=== PATIENT | male | born 1965 | race Caucasian/White ===

== ENCOUNTER 2022-03-27 15:37 | Outpatient (CLI) | payer BC, SELFPAY ==
--- NOTE | ~2022-03-27 | XR_ITS ---
EXAMINATION: XR lumbar spine 6V w bending DATE: 03/27/2022 16:27 INDICATION: Dorsalgia, unspecified. TECHNIQUE: 10 views of lumbar spine including flexion and extension views were obtained. COMPARISON: Lumbar spine MRI 03/27/2022 FINDINGS: There is 5 mm retrolisthesis of L2 on L3 that reduces to 3 mm with flexion. There is 3 mm a nterolisthesis of L3 on L4. There are changes of posterior fusion procedure at L4-L5 with pedicle scr ews. Vertebral body heights are normal. There is moderately decreased disc height at T11-T12 and L2-L 3 and mildly decreased disc height at L3-L4. There is multilevel facet joint osteoarthritis, severe b ilaterally at L5-S1. IMPRESSION: 1. Moderate lumbar spondylosis. 2. Posterior fusion procedure at L4-L5. Reviewed, dictated and finalized at location A. ATION ADMINISTRATOR
--- NOTE | ~2022-03-27 | MR_ITS ---
MRI of the lumbar spine Clinical History: Back pain Technique: Axial T2-weighted images, and sagittal T1-weighted, T2-weighted, and STIR images were acqu ired. Findings: There is posterior fusion hardware from L4 to L5, with bilateral rods and transpedicular sc rews present. There is associated probable L4 laminectomy. No acute fracture identified. 3-4 mm retro listhesis of L2 over L3 noted. No suspicious bone marrow signal abnormality identified. At L1-L2, there is no disc bulge or herniation. There is moderate bilateral facet arthropathy. No spi nal canal stenosis or neural foraminal narrowing. At L2-L3, there is a left paracentral disc extrusion, resulting in left lateral recess stenosis. Ther e is advanced facet arthropathy, which also contributes to severe bilateral neural foraminal compromi se and probable impingement of the bilateral exiting nerve roots. At L3-L4, disc bulge and facet arthropathy are present. No wayne spinal canal stenosis. There is mode rate to severe bilateral neural foraminal narrowing, left worse than right. At L4-L5, there is no disc bulge or herniation. There is facet arthropathy. No spinal canal stenosis. Probable minimal bilateral neural foraminal narrowing. At L5-S1, there is no disc bulge or herniation. There is mild facet joint degenerative change. No spi nal canal stenosis or definite neural foraminal narrowing. Paravertebral soft tissues demonstrate expected postsurgical change.. Impression: Left paracentral disc extrusion L2-L3, resulting in significant left lateral recess stenosis. Severe bilateral neural foraminal narrowing at L2-L3. Moderate to severe bilateral neural foraminal narrowing at L3-L4. Postsurgical changes at the L4-L5 level, as detailed above. Reviewed, dictated and finalized at [facility]. L ADMINISTRATIVE ASSISTANT Impression: Left paracentral disc extrusion L2-L3, resulting in significant left lateral re cess stenosis. Severe bilateral neural foraminal narrowing at L2-L3. Moderate to severe bilateral neural foraminal narrowing at L3-L4. Postsurgical changes at the L4-L5 level, as detailed above.
== END 2022-03-27 15:38 ==
PROVIDERS: PCP Family Medicine; Visit Provider Nurse Practitioner Adult Health
DX: M47.896 Other spondylosis, lumbar region (principal); Z98.1 Arthrodesis status; M51.26 Other intervertebral disc displacement, lumbar region
CPT/HCPCS: 72114; 72148

== ENCOUNTER 2024-04-26 08:31 | Outpatient (CLI) | payer BC, SELFPAY ==
--- NOTE | ~2024-04-26 | NM_ITS ---
EXAMINATION: NM bone scan whole body DATE: 04/26/2024 12:25 INDICATION: Prostate cancer TECHNIQUE: 25.7 mCi Tc-99m HDP was administered intravenously. Delayed whole-body scintigrams were o btained. COMPARISON: CT abdomen pelvis dated 04/26/2024 FINDINGS: Typical pattern of likely degenerative joint centered uptake at the bilateral acromioclavicular joint s, elbows, hands, knees and mid feet and at the right ankle. Mild uptake posteriorly at the lower lum bar spine likely related to instrumented L4-L5 posterior spinal fusion. Mild uptake couple of the tho racic facet joints also likely degenerative in etiology. No other foci of atypical bone uptake to sug gest metastatic disease. IMPRESSION: 1. Typical pattern of scattered degenerative joint centered uptake in the axial and appendicular skel eton. No lesion suspicious for metastatic disease. Reviewed, dictated and finalized at location A. ATIENT SCHEDULER IMPRESSION: 1. Typical pattern of scattered degenerative joint centered uptake in the axial and appendicular skeleton. No lesion suspicious for metastatic disease.
--- NOTE | ~2024-04-26 | CT_ITS ---
EXAMINATION: CT abdomen pelvis w con DATE: 04/26/2024 09:02 INDICATION: Prostate cancer. TECHNIQUE: Computed tomography (CT) of the abdomen and pelvis was performed with 100 mL Omnipaque 350 intravenous contrast. Automated exposure control and iterative reconstruction technique were employe d. The dose-length product was 1408.47 mGy-cm. COMPARISON: None. FINDINGS: The visualized portions of the lung bases demonstrate mild atelectasis. There is a pneumato walter in left lower lobe. No pleural effusion. The heart size is normal. No pericardial effusion. Ther e is a small sliding hiatal hernia. The liver, gallbladder, spleen, pancreas, and adrenal glands are normal. There are cysts in the kidneys measuring up to 10 mm on the left. There are bilateral inguina l hernias containing fat. The prostate is mildly enlarged. There are no dilated loops of bowel. The a ppendix is normal. There are no pathologically enlarged lymph nodes. There is no free intraperitoneal fluid. There are changes of posterior fusion procedure at L4-L5. There is moderate thoracic spondylo sis and severe lumbar spondylosis. IMPRESSION: 1. Mildly enlarged prostate. 2. No evidence of metastatic disease. Reviewed, dictated and finalized at location A. COACH
--- OUTSIDE RECORDS SUMMARY | 2024-04-26 08:38 | XMS_ITS | Patient Health Summary ---
Author Organization [facility] Address [address] [place] [address] Care Team Providers Care Clerk Travel Reservations Name Role Phone Unavailable Primary Care Provider Unavailabl e Note from [facility],non-owned Affiliates and Associated Physician Practices is amultiple site organization consisting of ambulatory clinics and hospital sitesin [place], [place], [place] and [place]. This disclosure is being madepursuant to the Care Everywhere program and may not contain all information available regarding this patient. Last updated 17.[facility] Allergies No known active allergies Medications * Be aware that medications may not be up to date on this document. Alwaysverify current medications with the patient. * lisinopril-hydrochlorothiazide (PRINIZIDE; ZESTORETIC) 20-25 MG tablet Take 1 Tab by mouth daily. * simvastatin (ZOCOR) 40 MG tablet Take 40 mg by mouth at bedtime. * VOLTAREN PO Take 75 mg by mouth 2 times daily. * hydrocodone-acetaminophen (VICODIN) 5-500 MG tablet(Started 02/08/2009) Take 1-2 Tabs by mouth every 4 hours as needed for Pain. * lisinopril (PRINIVIL) 20 MG tablet(Started 02/08/2009) Take 1 Tab by mouth daily. * methocarbamol (ROBAXIN) 750 MG tablet(Started 02/08/2009) Take 1 Tab by mouth every 6 hours. Social History Tobacco Use Types Packs/Day Years Used Date Smoking Tobacco: Never Alcohol Use Standard Drinks/Week Comments No 0 (1 standard drink = 0.6 oz pur e alcohol) Sex and Gender Information Value Date Recorded Sex Assigned at Not on file Gender Identity Not on file Sexual Orientation Not on file Last Filed Vital Signs Vital Sign Reading Time Taken Comments Blood Pressure 111/72 02/08/2009 4:00 PM PSYCHOLOGIST CHIEF Pulse 99 02/08/2009 4:00 PM PSYCHOLOGIST CHIEF Temperature 36.2 C (97.2 F) 02/08/2009 4:00 PM PSYCHOLOGIST CHIEF Respiratory Rate 16 02/08/2009 4:00 PM PSYCHOLOGIST CHIEF Oxygen Saturation 98% 02/08/2009 4:00 PM PSYCHOLOGIST CHIEF Inhaled Oxygen Concentration - - Weight 106.6 kg (235 lb 0.2 oz) 009 10:32 AM PSYCHOLOGIST CHIEF Height 182.9 cm (6' 0.01 ) 01/29/2009 1 0:32 AM PSYCHOLOGIST CHIEF Body Mass Index 31.87 01/29/2009 10:32 AM PSYCHOLOGIST CHIEF Procedures * CARDIAC RHYTHM STRIP ORDER(Performed 02/13/2009) * XR CERVICAL SPINE 2 OR 3VW(Performed 02/08/2009) Performed for Cervical Pain * FL IMAGING GENERAL(Performed 02/08/2009) Performed for Cervical Pain * BASIC METABOLIC PANEL (CALCIUM TOTAL)(Performed 02/08/2009) Performed for Unspecified Backache Results * CARDIAC RHYTHM STRIP ORDER (02/13/2009 9:35 AM PSYCHOLOGIST CHIEF) Narrative 02/13/2009 9:35 AM PSYCHOLOGIST CHIEF Ordered by an unspecified provider. Transcriptions Document, Scanned - 02/08/2009 12:00 AM PSYCHOLOGIST CHIEF Scanned Document CARDIAC SERVICES ORD ERABLES * XR CERVICAL SPINE AP LATERAL (02/08/2009 4:52 PM PSYCHOLOGIST CHIEF) Anatomical Region Laterality Modality Spine Radiographic Aimee ging 02/08/2009 5:03 PM PSYCHOLOGIST CHIEF Impressions 02/08/2009 7:08 PM PSYCHOLOGIST CHIEF 1. Status post fusion C3-C6. Narrative 02/08/2009 7:08 PM PSYCHOLOGIST CHIEF TWO VIEW CERVICAL SPINE 02/08/09 HISTORY: Status post fusion. FINDINGS: Postoperative changes consistent with anterior fusion of C3 through C6 is demonstrated without radiographic evidence of loosening of the fixation devices. No fracture or subluxation is present. The prevertebral soft tissues are essentially normal. Procedure Note Leo Tineo MD - 02/08/2009 TWO VIEW CERVICAL SPINE 02/08/09 HISTORY: Status post fusion. FINDINGS: Postoperative changes consistent with anterior fusion of C3 through C6 is demonstrated without radiographic evidence of loosening of the fixation devices. No fracture or subluxation is present. The prevertebral soft tissues are essentially normal. IMPRESSION 1. Status post fusion C3-C6. Stan Snyder MD DIAGNOSTIC IMAGING O RDERABLES * FL FLUORO < 1 HOUR (02/08/2009 12:00 PM PSYCHOLOGIST CHIEF) Anatomical Region Laterality Modality Radio Fluoroscop y 02/08/2009 1:05 PM PSYCHOLOGIST CHIEF Narrative 02/08/2009 7:08 PM PSYCHOLOGIST CHIEF HISTORY: Neck pain. C-arm fluoroscopy 02/08/2009 FINDINGS: C-arm fluoroscopy was provided for intraoperative guidance. A single fluoroscopic crosstable-lateral image of the cervical spine demonstrates anterior fusion of C3 through C6. Would correlate with intraoperative notes for further details . Procedure Note Leo Tineo MD - 02/08/2009 HISTORY: Neck pain. C-arm fluoroscopy 02/08/2009 FINDINGS: C-arm fluoroscopy was provided for intraoperative guidance. A single fluoroscopic crosstable-lateral image of the cervical spine demonstrates anterior fusion of C3 through C6. Would correlate with intraoperative notes for further details . Stan Snyder MD FLUOROSCOPY ORDERABL ES * (ABNORMAL) BASIC METABOLIC PANEL (CALCIUM TOTAL) (02/08/2009 8:00 AM PSYCHOLOGIST CHIEF) Sodium 140 137 - 145 mmol/L [facility] Potassium 4.1 3.6 - 5.0 mmol/L [facility] Chloride 104 98 - 107 mmol/L [facility] BUN 19 9 - 20 mg/dl [facility] Creatinine 1.03 0.66 - 1.25 mg/dl [facility] Glucose 112(H) 75 - 110 mg/dl [facility] CO2 29 22 - 30 mmol/L [facility] Calcium 9.2 8.4 - 10.2 mg/dl [facility] eGFR by MDRD 78(L) 97 - 137 mL/min/1.7 3m2 [facility] Comment eGFR [facility] Comment: The eGFR does not apply to patients who are younger than 18 or older than 70. BLOOD SPECIMEN / Unknown 02/08/2009 8:00 AM PSYCHOLOGIST CHIEF 02/08/2009 8:07 AM PSYCHOLOGIST CHIEF Jose Miguel Pedro MD LAB - CHEMISTRY OR DERABLES Performing Organization Address City/State/[facility] Co de Phone Number [facility] [address] [place] [address]
--- OUTSIDE RECORDS SUMMARY | 2024-04-26 08:38 | XMS_ITS | Data Portability ---
Author Organization [place] - [facility] [employer], Main Office Address [address] [place] [address] Care Team Providers Care Electron Beam Photo Mask Maker Name Role Phone ADOLFO PANIAGUA Primary Care Provider ADOLFO PANIAGUA Referring Provider Assessment Encounter Date Assessment Date Assessment LastModified by Organization Details LastModified Time 07/24/2022 07/24/2022 HPI: Patient returns. He is here injection in both his knees. Last shot was over 5 months ago. His knees have gotten a bit more sore the last month. Shots have always worked well for him in the past he wishes to continue with them. Physical exam: 57-year-old male very alert pleasant. He has mild effusions in both knees. Range of motion is from 3-135 degrees bilaterally. There is significant crepitus of both patellofemoral joints with range of motion as well as moderate. Patellofemoral grind bilaterally. Mild tenderness over both medial joint lines. After ChloraPrep was used on skin 20 mg Kenalog and 3 cc of 0.5% ropivacaine was injected into both knees. Risk infection discussed. Impression: 57-year-old male who has severe patellofemoral osteoarthritis of both knees and moderate medial compartment osteoarthritis of both knees. He continues to good relief from injections from time to time. He will call when he feels he needs additional injections. Not available 07/24/2022 12:58:16 02/19/2023 02/19/2023 HPI: Patient returns. He is here for cortisone injection in both of his knees. Last shots were in July of this year. He has severe patellofemoral osteoarthritis in both knees. He also has mild medial compartment osteoarthritis both knees. He wished to have additional injections today. He is not ready to discuss surgical option on the knees. Physical exam: 57-year-old male alert pleasant. He walks well. He has a mild effusion in both knees. He has mild moderate pain with patellofemoral grind in both knees. Mild medial joint line tenderness in both knees. Range motion is from 5-135 degrees bilaterally. There is no increased edema in either lower extremity. After ChloraPrep used on skin 20 mg Kenalog and 3 cc of 0.5% ropivacaine was injected into both knees. risk of infection discussed. Impression: 57-year-old male who has severe patellofemoral osteoarthritis in both knees. Shots continue give good benefit from time to time. He will call when he feels he needs additional injection Not available 02/19/2023 11:50:31 05/28/2023 05/28/2023 HPI: Patient returns. He is here for cortisone injections into both of his knees. He has severe patellofemoral osteoarthritis in both knees. Last shots were 3 months ago. They do give him good relief and he wishes to continue with injections. Physical exam: Patient has mild effusions in both knees. Range motion is from 5 to 130 bilaterally. Mild to moderate pain with patellofemoral grind bilaterally. Mild medial joint line tenderness bilaterally. After alcohol prep 20 mg Kenalog and 3 cc of 0.5% ropivacaine was injected into both knees. Impression: 58-year-old male who has severe patellofemoral osteoarthritis in both knees. Shots continue give him good relief. I will see him in 3 months. Not available 05/28/2023 11:34:57 Plan of Treatment Reminders Order Date Submit Date Provider Last Modified By Organization Details Last Modified Time Details Appointments None recorded. Lab None recorded. Referral None recorded. Procedures injection/a spiration joint/bursa (PROC) - in office procedure, administere d by provider 2023 024 [email or web address] In-Office Order, Internal Use Only DO Not Attach Compendium DO Not Attach Compendium, Do Not Delete/merge, [id number] 11:05:22 injection/a spiration joint/bursa (PROC) - in office procedure, administere d by provider 2022 023 In-Office Order, Internal Use Only DO Not Attach Compendium DO Not Attach Compendium, Do Not Delete/merge, [id number] 10:53:14 injection/a spiration joint/bursa (PROC) - in office procedure, administere d by provider 2022 023 [email or web address] In-Office Order, Internal Use Only DO Not Attach Compendium DO Not Attach Compendium, Do Not Delete/merge, [id number] 12:18:02 Surgeries None recorded. Imaging XR, knee [address], [address] [place] [address], [id number], 3 15:48:48 Medication Orders Kenalog 10 mg/mL suspension for injection [address] [facility], [address] [place] [address], [address], 4 11:37:03 bupivacaine HCl 0.5 % (5 mg/mL) injection solution [address] [facility], [facility] [place], [address], 4 11:37:03 Kenalog 10 mg/mL suspension for injection [address] [facility], [facility] [place], [address], 3 14:03:42 ropivacaine (PF) 5 mg/mL (0.5 %) injection solution [address], [facility] [place], [address], 3 14:03:42 Kenalog 10 mg/mL suspension for injection [address], [address] [place] [address], [address], 3 12:50:47 ropivacaine (PF) 5 mg/mL (0.5 %) injection solution 2022 023 [email or web address] [facility], [address] [facility], [place], [address], 3 12:50:47 Patient TargetsNo targets recorded. Patient InstructionsNo instructions recorded. Reason for Referral None Reported. Results Created Date Observation Date Name Description Value Unit Range Abnormal Flag Note LastModifiedBy Organization Detail LastModifiedTime 02/07/20 22 XR, knee No observ ation record ed. [id number] [facility] [address], [place], [address], 05/07/2022 03:14:00 07/25/19 23 XR, knee No observ ation record ed. s_g[facility] [address], [place], [address], 07/24/2022 12:57:07 Result Notes None recorded. Problems Name Problem SNOMED Code Status Onset Date Resolution Date Notes Provider Name and Address Organization Details Recorded Time Pain of bilateral knee joints 9257699299058 04 Active 2022 JOSH Aguayo, [place] [facility] [employer] [facility] 3 12:16:30 Disorder of shoulder 954711943 Active Not Available [facility] 3 03:03:06 Knee joint effusion 364410799 Active Not Available [facility] 3 03:03:06 Ankle pain 045694844 Active Not Available [facility] 3 03:03:06 Low back pain 714813101 Active Not Available [facility] 3 03:03:06 Osteoarthr itis 820502079 Active Not Available [facility] 3 03:03:06 Foot pain 94016493 Active Not Available [facility] 3 03:03:07 Osteochond ritis dissecans 56953249 Active Not Available [facility] 3 03:03:07 Bilateral osteoarthr itis of knees 3704992504319 07 Active 2022 JOSH Aguayo, [place] - [facility] [employer] [facility] 10:50:32 Problem Notes None recorded. Procedures Surgical History Date Name Laterality Status Provider Name and Address Organization Details Recorded Time Carpal tunnel surgery completed Not Available [facility] 05/07/2022 02:55:59 Imaging Results Imaging Date Name Status LastModified by Organiz ation Details LastModified Time 02/06/2022 XR, knee completed [id number] [facility] [address], [place], [address], 05/07/2022 03:14:00 07/24/2022 XR, knee completed [facility], [place], [address], 07/24/2022 12:57:07 Procedure Notes None recorded. Medical Equipment None Reported. Medications Name Sig Start Date Stop Date Status Note LastModified by Organization Details LastModified Time lidocaine/n ifedipine 5%/0.5% ointment FISSURE OINT-LIDO PETRA 3%, NIFEDIPIN E 0.5% - APPLY SPARINGLY TO AFFECTED AREA 1-3 TIMES DAILY NEEDED. 02/19 completed Not Available Not Available Not Available lisinopril 20 mg-hydrochl orothiazide 12.5 mg tablet 09/04 completed Not Available Not Available Not Available azithromyci n 250 mg tablet 05/31 completed Not Available Not Available Not Available ibuprofen 800 mg tablet 05/31 completed Not Available Not Available Not Available hydrocodone 5 mg-acetamin ophen 325 mg tablet TAKE 1 TABLET BY MOUTH EVERY 4 HOURS NEEDED FOR BREAKTHRO UGH PAIN active Not Available Not Available No t Available bupivacaine HCl 0.5 % (5 mg/mL) injection solution In office injection administe red by the provider 2023 active Not Available Not Available Not Avai lable sulfamethox azole 800 mg-trimetho prim 160 mg tablet 05/31 completed Not Available Not Available Not Available tramadol 50 mg tablet 06/22 completed Not Available Not Available Not Available ketorolac 10 mg tablet TAKE FIRST DOSE OF ONE TABLET 6 HOURS AFTER SURGERY, THEN EVERY SIX HOURS WITH FOOD FOR PAIN. 02/19 completed Not Available Not Available Not Available DOK 100 mg capsule TAKE 1 CAPSULE BY MOUTH EVERY 12 HOURS FOR CONSTIPAT ION FROM NARCOTIC PAIN MEDICATIO N active Not Available Not Available No t Available Kenalog 10 mg/mL suspension for injection in office 2023 active NDC: 0003- 0494- 20 Not Available Not Available Not Available benzonatate 100 mg capsule 06/22 completed Not Available Not Available Not Available fluorometho lone 0.1 % eye drops,suspe nsion 05/31 completed Not Available Not Available Not Available lisinopril 20 mg-hydrochl orothiazide 25 mg tablet TAKE 1 TABLET BY MOUTH ONCE DAILY active Not Available Not Available No t Available oxycodone-a cetaminophe n 7.5 mg-325 mg tablet TAKE ONE OR TWO BY MOUTH EVERY 4-6 HOURS NEEDED FOR POST-OP PAIN. 02/19 completed Not Available Not Available Not Available methylpredn isolone 4 mg tablets in a dose pack Take 1 dose pk by oral route as directed. 07/24 completed Not Available Not Available Not Available doxycycline hyclate 100 mg tablet TAKE 1 TABLET BY MOUTH TWICE DAILY active Not Available Not Available No t Available naproxen 500 mg tablet Take 1 tablet by mouth twice daily with food active Not Available Not Available No t Available diazepam 5 mg tablet TAKE 1 TABLET BY MOUTH EVERY 6 HOURS NEEDED FOR MUSCLE SPASM active Not Available Not Available No t Available amoxicillin 875 mg-potassiu m clavulanate 125 mg tablet 05/31 completed Not Available Not Available Not Available rosuvastati n 10 mg tablet 05/31 completed Not Available Not Available Not Available rosuvastati n 20 mg tablet TAKE 1 TABLET BY MOUTH ONCE DAILY active Not Available Not Available No t Available ibuprofen 04/26 completed Not Available Not Available Not Available lidocaine (PF) 10 mg/mL (1 %) injection solution In office injection administe red by the provider 07/25 completed ND: 0409- 4276- [id number] Not Available Not Available Not Available Voltaren 1 % topical gel APPLY 2 GRAM TO THE AFFECTED AREA(S) BY TOPICAL ROUTE 3 times per day active Not Available Not Available No t Available ropivacaine (PF) 5 mg/mL (0.5 %) injection solution in office 2022 active Not Available Not Available Not Avai lable Fluarix Quad (PF) 60 mcg (15 mcg x 4)/0.5 mL IM syringe 05/31 completed Not Available Not Available Not Available Fluvirin 45 mcg (15 mcg x 3)/0.5 mL intramuscul ar suspension active Not Available Not Available N ot Available Fluarix Quad (PF) 60 mcg (15 mcg x 4)/0.5 mL IM syringe active Not Available Not Available N ot Available Fluarix Quad (PF) 60 mcg (15 mcg x 4)/0.5 mL IM syringe active Not Available Not Available N ot Available Flucelvax Quad (PF) 60 mcg (15 mcg x 4)/0.5 mL IM syringe active Not Available Not Available N ot Available ID NOW COVID-19 Test Kit TEST DIRECTED TODAY active Not Available Not Available No t Available Flucelvax Quad (PF) 60 mcg (15 mcg x 4)/0.5 mL IM syringe ADM 0.5ML IM UTD 02/08 completed Not Available Not Available Not Available Paxlovid 300 mg (150 mg x 2)-100 mg tablets in a dose pack TAKE 3 TABLETS TOGETHER (TWO 150 MG NIRMATREL VIR TABLETS AND ONE 100 MG RITONAVIR TABLET) BY MOUTH TWICE DAILY FOR 5 DAYS. 07/24 completed Not Available Not Available Not Available Vitals Date Recorded Body height Body mass index (BMI) Body weight Provider Name and Address Organization Details Last Updated DateTime 07/24/2022 175.26 cm 37.1 kg/m2 444081.68 g Bibi Jones Etienne [facility] [employer] [facility] 07/24/2022 12:20:12 Date Recorded Body height Provider Name an d Address Organization Details Last Updated DateTime 02/19/2023 175.26 cm Bibi Jones Etienne [facility] [employer] [facility] 02/19/2023 10:49:55 Date Recorded Body height Provider Name an d Address Organization Details Last Updated DateTime 05/28/2023 175.26 cm JOSH Aguayo [place] [facility] 05/28/2023 11:03:22 Date Recorded Body mass index (BMI) Body height Body height Body weight Provider Name and Address Organization Details Last Updated DateTime 05/07/2022 39 kg/m2 175.26 cm 175.26 cm 404841.39 g Not Available [facility] 05/07/2022 03:00:20 Social History Question Answer Notes LastModified by [employer] ion Details LastModified Time Tobacco Smoking Status Unknown If Ever Smoked Not Available [facility] 05/07/2022 02:48:56 What Is Your Level Of Alcohol Consumption? Occasional [id number] Information not available 05/07/2022 Sex: Unknown Functional Status None recorded. Mental Status None recorded. Family History Relationship Description Onset Age of this Age Resolved Age Notes LastModified by Organization Details LastModified Time Father Hypertensive disorder [id number] Not available 05/07/2022 02:56:03 Medical History Condition Response BLINDNESS N KIDNEY STONES N MRSA N CARPAL TUNNEL SYNDROME N LUNG DISEASE/DISORDER N HISTORY OF DRUG ABUSE N RADIATION / CHEMOTHERAPY N COPD N SPORTS INJURY N ANKLE PAIN N BLOOD DISEASES N SCHIZOPHRENIA N SHINGLES N SHOULDER PAIN N DEPRESSION (INCLUDING POST ) N BOWEL PROBLEMS N STROKE/TIA N ULCERS N KNEE PAIN N BENIGN PROSTATIC HYPERPLASIA N OBESITY N GERD/NAUSEA N ANEURYSM N URINARY/BLADDER/KIDNEY PROBLEMS N CORONARY ARTERY DISEASE (CAD) N ADDICTION CONCERNS N USE OF BLOOD THINNERS N SKIN PROBLEMS N EMPHYSEMA N MUSCLE,JOINT OR BONE PROBLEMS N DVT N STOMACH ULCERS N BLOOD CLOTS N USE OF NSAIDS N CONCUSSION OR SPINAL TRAUMA N NEUROPATHY N AIDS/HIV N FRACTURES N HYPERTENSION N ELBOW PAIN N TOURETTE'S N Metal allergy N ANXIETY DISORDER N BLOOD TRANSFUSION N ANEMIA/BLOOD DISORDER N BIPOLAR DISORDER N BRONCHITIS N OSTEOARTHRITIS N TUBERCULOSIS N FOOT PROBLEM N HEART VALVE DISORDERS N SOFT TISSUE INJURY N ALLERGIES/HAYFEVER N INFECTIOUS DISEASE N HEART ARRHYTHMIA N INSOMNIA N RHEUMATOID ARTHRITIS N HIGH CHOLESTEROL / HYPERLIPIDEMIA N EDEMA N CHRONIC PAIN SYNDROME N CAROTID BLOCKAGE N BACK / NECK PROBLEMS N HAVE YOU BEEN HOSPITALIZED OR SEEN IN [facility] IN THE PAST YEAR ? N BURSITIS N HERNIATED DISC N DIALYSIS N FIBROMYALGIA N OSTEOPOROSIS N ARTHRITIS Y NO SIGNIFICANT PAST MEDICAL HISTORY N PERIPHERAL NEUROPATHY N DIABETES, TYPE N HEARTBURN / REFLUX N HEPATITIS / LIVER DISEASE N GOUT N SLEEP DISORDER N ALZHEIMER'S DISEASE N HERPES N SEIZURES/EPILEPSY N HEADACHES/MIGRAINES N VASCULAR DISEASE N HIP PAIN N Blood Disorder N DIZZINESS N HEAD TRAUMA OR INJURY N HEART DISEASE/HEART PROBLEMS N MULTIPLE SCLEROSIS N CARDIAC ARRHYTHMIA N CANCER: SPECIFY N ANESTHESIA COMPLICATIONS N ATRIAL FIBRILLATION N AUTOIMMUNE DISEASE N Immunizations Vaccine Type Date Status Note Provider Nam e and Address Organization Details Recorded Time Influenza, high-dose, trivalent, PF 03/09/2014 completed Not Available [facility] 2022 03:13:16 Past Encounters Encounter ID Performer Location Encounter Start Date Encounter Closed Date Diagnosis/Indication Diagnosis SNOMED-CT Code Diagnosis ICD10 Code Diagnosis Note [id number] [facility] [address] [address] 09/13/2020 00:00:00 09/13/2020 10:48:16 [id number] [facility] [address] [address] 09/24/2020 00:00:00 09/24/2020 15:57:26 [id number] [facility] [address] [address] 02/28/2021 00:00:00 02/28/2021 10:29:29 [id number] [facility] [address] [address] 07/25/2021 00:00:00 07/25/2021 10:18:45 [id number] [facility] [address] [address] 02/06/2022 00:00:00 02/06/2022 10:34:18 [id number] ANGY Roger [facility] [address] [address] 07/24/2022 11:58:57 07/24/2022 13:10:36 Pain of bilateral knee joints 5527105772 67539 M25.561 M25.836 [id number] ANGY Roger [facility] [address] [address] 02/19/2023 10:43:24 02/19/2023 12:16:10 Bilateral osteoarthritis of knees 0097608965 89291 M17.0 [id number] ANGY Roger [facility] [address] [place] [address] 05/28/2023 11:01:33 05/28/2023 11:24:55 Bilateral osteoarthritis of knees 0730575126 03882 M17.0 Health Concerns Section Related Observation LastModified by Organization Detai ls LastModified Time None Recorded Concern Status LastModified by Organization Details LastModified Time None Recorded Advance Directives Directive None Recorded Payers Encounter Date Sequence Insurance Name Policy Number Policy Garcia Covered Member ID Garcia Member ID Guarantor Name 07/24/2022 1 [place] [id number] Dominic Cariast [id number] Dominic Linwood 02/19/2023 1 [place] [id number] Dominic Cariast [id number] Dominic Linwood 05/28/2023 1 [place] [id number] Dominic Cariast [id number] Dominic Palumbo
--- OUTSIDE RECORDS SUMMARY | 2024-04-26 08:38 | XMS_ITS | Referral Summary ---
Author Organization [facility] [email or web address] Address [address] [place] [address] Care Team Providers Care Squeegee Tender Name Role Phone Unavailable Primary Care Provider Unavailabl e Source Comments [facility],non-owned Affiliates and Associated Physician Practices is amultiple site organization consisting of ambulatory clinics and hospital sitesin [place], [place], [place] and [place]. This disclosure is being madepursuant to the Care Everywhere program and may not contain all information available regarding this patient. Last updated 17.[facility] [email or web address] Allergies No known active allergies Medications * Be aware that medications may not be up to date on this document. Alwaysverify current medications with the patient. Medication Sig Dispensed Refills Start Date End Date Status lisinopril-hydrochloro thiazide (PRINIZIDE; ZESTORETIC) 20-25 MG tablet Take 1 Tab by mouth daily. Active simvastatin (ZOCOR) 40 MG tablet Take 40 mg by mouth at bedtime. Active VOLTAREN PO Take 75 mg by mouth 2 times daily. Active hydrocodone-acetaminop hen (VICODIN) 5-500 MG tablet Take 1-2 Tabs by mouth every 4 hours as needed for Pain. 0 0 02/08/2009 Active lisinopril (PRINIVIL) 20 MG tablet Take 1 Tab by mouth daily. 0 0 02/08/2009 Active methocarbamol (ROBAXIN) 750 MG tablet Take 1 Tab by mouth every 6 hours. 0 0 02/08/2009 Active Social History Tobacco Use Types Packs/Day Years [...] Comments Blood Pressure 111/72 02/08/2009 4:00 PM POWER ELECTRONICS RESEARCH ENGINEER Pulse 99 02/08/2009 4:00 PM POWER ELECTRONICS RESEARCH ENGINEER Temperature 36.2 C (97.2 F) 02/08/2009 4:00 PM POWER ELECTRONICS RESEARCH ENGINEER Respiratory Rate 16 02/08/2009 4:00 PM POWER ELECTRONICS RESEARCH ENGINEER Oxygen Saturation 98% 02/08/2009 4:00 PM POWER ELECTRONICS RESEARCH ENGINEER Inhaled Oxygen Concentration - - Weight 106.6 kg (235 lb 0.2 oz) 009 10:32 AM POWER ELECTRONICS RESEARCH ENGINEER Height 182.9 cm (6' 0.01 ) 01/29/2009 1 0:32 AM POWER ELECTRONICS RESEARCH ENGINEER Body Mass Index 31.87 01/29/2009 10:32 AM POWER ELECTRONICS RESEARCH ENGINEER Plan of Treatment Not on file
--- OUTSIDE RECORDS SUMMARY | 2024-04-26 08:38 | XMS_ITS | Clinical Summary ---
Author Organization [facility] [employer] Address [address] [place] [address] Care Team Providers Care Shirt Folding Machine Operator Name Role Phone Unavailable Primary Care Provider Unavailabl e Source Comments [facility],non-owned Affiliates and Associated Physician Practices is amultiple site organization consisting of ambulatory clinics and hospital sitesin [place], [place], [place] and [place]. This disclosure is being madepursuant to the Care Everywhere program and may not contain all information available regarding this patient. Last updated 17.[facility] Allergies No known active allergies Medications * [...] Comments Blood Pressure 111/72 02/08/2009 4:00 PM GEOTHERMAL FIELD TECHNICIAN Pulse 99 02/08/2009 4:00 PM GEOTHERMAL FIELD TECHNICIAN Temperature 36.2 C (97.2 F) 02/08/2009 4:00 PM GEOTHERMAL FIELD TECHNICIAN Respiratory Rate 16 02/08/2009 4:00 PM GEOTHERMAL FIELD TECHNICIAN Oxygen Saturation 98% 02/08/2009 4:00 PM GEOTHERMAL FIELD TECHNICIAN Inhaled Oxygen Concentration - - Weight 106.6 kg (235 lb 0.2 oz) 009 10:32 AM GEOTHERMAL FIELD TECHNICIAN Height 182.9 cm (6' 0.01 ) 01/29/2009 1 0:32 AM GEOTHERMAL FIELD TECHNICIAN Body Mass Index 31.87 01/29/2009 10:32 AM GEOTHERMAL FIELD TECHNICIAN Plan of Treatment Health Maintenance Due Date Last Done Comments COLOGUARD (AGES 45-75) - COL ON CA SCREENING 1963 COLON MONITORING 1963 COLONOSCOPY - COLON CA SCREENING 1963 CT COLONOGRAPHY - COLON CA SCREENING 1963 Colorectal Cancer Screening 1963 FIT - COLON CA SCREENING 1963 FLEX SIG - COLON CA SCREENING 1963 HIV SCREENING 1978 HEPATITIS C SCREENING 02/26/1981 DTAP/TDAP/TD VACCINES (1 - Tdap) 1982 PNEUMOCOCCAL VACCINE 50+ (1 of 1 - PCV) 2013 ZOSTER VACCINE (1 of 2) 2013 COVID-19 VACCINE ( - 2023-2 5 season) 2023 INFLUENZA VACCINE (#1) 2023 DEPRESSION SCREENING 03/09/2024 Respiratory Syncytial Virus (RSV) Vaccine Pt: or over 60 yrs (1 - 1-dose 75+ series) 2038 HEPATITIS B VACCINE Aged Out No longe r eligible based on patient's age to complete this topic HIB VACCINE Aged Out No longer eligi ble based on patient's age to complete this topic HPV VACCINE Aged Out No longer eligi ble based on patient's age to complete this topic MENINGOCOCCAL (Group B) VACCINE Aged Out No longer eligible based on patient's age to complete this topic MENINGOCOCCAL VACCINE Aged Out No ursula lorena eligible based on patient's age to complete this topic PNEUMOCOCCAL VACCINE Aged Out No long er eligible based on patient's age to complete this topic
[2024-04-26 08:57] LABS: Estimated Glomerular Filt Rate > 60
== END 2024-04-26 08:32 | disposition home or self-care (01) ==
PROVIDERS: PCP Family Medicine; Visit Provider Urology
DX: C61 Malignant neoplasm of prostate (principal)
CPT/HCPCS: 74177; 78306; A9503; Q9967

== ENCOUNTER 2024-06-15 08:46 | Outpatient (CLI) | payer BC, SELFPAY ==
--- NOTE | ~2024-06-15 | XR_ITS ---
CHEST RADIOGRAPH, PA AND LATERAL CLINICAL HISTORY: C61 - Malignant neoplasm of prostate, H/O HTN, DIABETES . COMPARISON: None available TECHNIQUE: PA and lateral views of the chest. FINDINGS The cardiomediastinal silhouette is unremarkable. The lungs are clear. Fixation hardware within the lower cervical spine IMPRESSION: No focal infiltrate or effusion. Reviewed, dictated and finalized at location A.
--- OUTSIDE RECORDS SUMMARY | 2024-06-15 09:25 | XMS_ITS | Data Portability ---
Author Organization [place] [facility], Main Office Address [address] [place] [address] Care Team Providers Care Superintendent Name Role Phone ADOLFO PANIAGUA Primary Care [...] procedure, administere d by provider 2023 024 [email or web address] In-Office Order, Internal Use Only DO Not Attach Compendium DO Not Attach Compendium, Do Not Delete/merge, [id number] 11:05:22 injection/a spiration joint/bursa (PROC) - in office procedure, administere d by provider 2022 023 [email or web address] In-Office Order, Internal Use Only DO Not Attach Compendium DO Not Attach Compendium, Do Not Delete/merge, [id number] 10:53:14 injection/a spiration joint/bursa (PROC) - in office procedure, administere d by provider 2022 023 [email or web address] In-Office Order, Internal Use Only DO Not Attach Compendium DO Not Attach Compendium, Do Not Delete/merge, [id number] 12:18:02 Surgeries None recorded. Imaging XR, knee [address], [address] [place] [address], [phone], 3 15:48:48 Medication Orders Kenalog 10 mg/mL suspension for injection [address] [facility], [address] [place] [address], [address], 4 11:37:03 bupivacaine HCl 0.5 % (5 mg/mL) injection solution [address] [facility], [facility] [place], [address], 4 11:37:03 Kenalog 10 mg/mL suspension for injection [address] [facility], [facility] [place], [address], 3 14:03:42 ropivacaine (PF) 5 mg/mL (0.5 %) injection solution [address], [facility] [place], [address], 3 14:03:42 Kenalog 10 mg/mL suspension for injection [address], [address] [place] [address], [address], 3 12:50:47 ropivacaine (PF) 5 mg/mL (0.5 %) injection solution 2022 023 [email or web address] [facility], [address] [facility], [place], [address], 3 12:50:47 Patient TargetsNo targets recorded. Patient InstructionsNo instructions recorded. Reason for Referral None Reported. Results Created Date Observation Date Name Description Value Unit Range Abnormal Flag Note LastModifiedBy Organization Detail LastModifiedTime 02/07/20 22 XR, knee No observ ation record ed. [id number] [facility] [address], [place], [address], 05/07/2022 03:14:00 07/25/19 23 XR, knee No observ ation record ed. s_gmg [address], [place], [address], 07/24/2022 12:57:07 Result Notes None recorded. Problems Name Problem SNOMED Code Status Onset Date Resolution Date Notes Provider Name and Address Organization Details Recorded Time Pain of bilateral knee joints 5443237943610 04 Active 2022 JOSH Aguayo, [place] - [facility] [employer] [facility] 3 12:16:30 Disorder of shoulder 231876914 Active Not Available [facility] 3 03:03:06 Knee joint effusion 605270771 Active Not Available [facility] 3 03:03:06 Ankle pain 634944053 Active Not Available [facility] 3 03:03:06 Low back pain 339205607 Active Not Available [facility] 3 03:03:06 Osteoarthr itis 027630413 Active Not Available [facility] 3 03:03:06 Foot pain 14400263 Active Not Available [facility] 3 03:03:07 Osteochond ritis dissecans 26846381 Active Not Available [facility] 3 03:03:07 Bilateral osteoarthr itis of knees 0048364023501 07 Active 2022 JOSH Aguayo, [place] - [facility] [employer] [facility] 10:50:32 Problem Notes None recorded. Procedures Surgical History Date Name Laterality Status Provider Name and Address Organization Details Recorded Time Carpal tunnel surgery completed Not Available [facility] 05/07/2022 02:55:59 Imaging Results Imaging Date Name Status LastModified by Organiz ation Details LastModified Time 02/06/2022 XR, knee completed [id number] [facility] [address], [place], [address], 05/07/2022 03:14:00 07/24/2022 XR, knee completed [facility]_[address], [place], [address], 07/24/2022 12:57:07 Procedure Notes None recorded. Medical [...] Updated DateTime 07/24/2022 175.26 cm 37.1 kg/m2 346838.68 g Bibi Jones Etienne [facility] [facility] 07/24/2022 12:20:12 Date Recorded Body height Provider Name an d Address Organization Details Last Updated DateTime 02/19/2023 175.26 cm Bibi Jones Etienne [facility] [employer] [facility] 02/19/2023 10:49:55 Date Recorded Body height Provider Name an d Address Organization Details Last Updated DateTime 05/28/2023 175.26 cm JOSH Aguayo [place] - [facility] 05/28/2023 11:03:22 Date Recorded Body mass index (BMI) Body height Body weight Provider Name and Address Organization Details Last Updated DateTime 07/25/2021 39 kg/m2 175.26 cm 812272.39 g Not Available [facility] 05/07/2022 03:00:20 Date Recorded Body height Provider Name an d Address Organization Details Last Updated DateTime 02/06/2022 175.26 cm Not Available [facility] 03:00:19 Social History Question Answer Notes LastModified by Organizat ion Details LastModified Time Tobacco Smoking Status Unknown If Ever Smoked Not Available [facility] 05/07/2022 02:48:56 What Is Your Level Of Alcohol Consumption? Occasional [id number] Information not available 05/07/2022 Sex: Unknown Functional Status None recorded. Mental Status None recorded. Family History Relationship Description Onset Age of this Age Resolved Age Notes LastModified by Organization Details LastModified Time Father Hypertensive disorder [id number] Not available 05/07/2022 02:56:03 Medical History Condition Response BLINDNESS N KIDNEY STONES N MRSA N CARPAL TUNNEL SYNDROME N LUNG DISEASE/DISORDER N HISTORY OF DRUG ABUSE N RADIATION / CHEMOTHERAPY N COPD N SPORTS INJURY N ANKLE PAIN N BLOOD DISEASES N SCHIZOPHRENIA N SHINGLES N BOWEL PROBLEMS N SHOULDER PAIN N DEPRESSION (INCLUDING POST ) N STROKE/TIA N KNEE PAIN N ULCERS N BENIGN PROSTATIC HYPERPLASIA N OBESITY N GERD/NAUSEA N ANEURYSM N URINARY/BLADDER/KIDNEY PROBLEMS N CORONARY ARTERY DISEASE (CAD) N ADDICTION CONCERNS N USE OF BLOOD THINNERS N SKIN PROBLEMS N EMPHYSEMA N MUSCLE,JOINT OR BONE PROBLEMS N DVT N STOMACH ULCERS N BLOOD CLOTS N USE OF NSAIDS N CONCUSSION OR SPINAL TRAUMA N NEUROPATHY N AIDS/HIV N FRACTURES N ELBOW PAIN N HYPERTENSION N TOURETTE'S N ANXIETY DISORDER N Metal allergy N BLOOD TRANSFUSION N ANEMIA/BLOOD DISORDER N BIPOLAR DISORDER N BRONCHITIS N OSTEOARTHRITIS N TUBERCULOSIS N FOOT PROBLEM N HEART VALVE DISORDERS N ALLERGIES/HAYFEVER N SOFT TISSUE INJURY N INFECTIOUS DISEASE N HEART ARRHYTHMIA N INSOMNIA N RHEUMATOID ARTHRITIS N HIGH CHOLESTEROL / HYPERLIPIDEMIA N EDEMA N CHRONIC PAIN SYNDROME N CAROTID BLOCKAGE N BACK / NECK PROBLEMS N HAVE YOU BEEN HOSPITALIZED OR SEEN IN TH E ER IN THE PAST YEAR ? N BURSITIS [...] high-dose, trivalent, PF 03/09/2014 completed Not Available [facility] 2022 03:13:16 Past Encounters Encounter ID Performer Location Encounter Start Date Encounter Closed Date Diagnosis/Indication Diagnosis SNOMED-CT Code Diagnosis ICD10 Code Diagnosis Note [id number] [facility] [address] [address] 09/13/2020 00:00:00 09/13/2020 10:48:16 [id number] [facility] [address] [address] 09/24/2020 00:00:00 09/24/2020 15:57:26 [id number] [facility] [address] [address] 02/28/2021 00:00:00 02/28/2021 10:29:29 [id number] [facility] [address] [address] 07/25/2021 00:00:00 07/25/2021 10:18:45 [id number] [facility] [address] [address] 02/06/2022 00:00:00 02/06/2022 10:34:18 [id number] ANGY Roger [facility] [address] [address] 07/24/2022 11:58:57 07/24/2022 13:10:36 Pain of bilateral knee joints 9851283633 16658 M25.561 M25.278 [id number] ANGY Roger [facility] [address] [address] 02/19/2023 10:43:24 02/19/2023 12:16:10 Bilateral osteoarthritis of knees 5610375878 26160 M17.0 [id number] ANGY Roger [facility] [address] [address] 05/28/2023 11:01:33 05/28/2023 11:24:55 Bilateral osteoarthritis of knees 6395630791 81831 M17.0 Health Concerns Section Related Observation LastModified by Organization Detai ls LastModified Time None Recorded Concern Status LastModified by Organization Details LastModified Time None Recorded Advance Directives Directive None Recorded Payers Encounter Date Sequence Insurance Name Policy Number Policy Garcia Covered Member ID Garcia Member ID Guarantor Name 07/24/2022 1 [place] [id number] Dominic Cariast [id number] Dominic Linwood 02/19/2023 1 [place] [id number] Dominic Quesadafitt [id number] Dominic Linwood 05/28/2023 1 [place] [id number] Dominic Quesadafitt [id number] Dominic Palumbo
--- OUTSIDE RECORDS SUMMARY | 2024-06-15 09:25 | XMS_ITS | Clinical Summary ---
Author Organization [facility] Address [address] [place] [address] Care Team Providers Care Associate Partner Name Role Phone Unavailable Primary Care Provider Unavailabl e Source Comments [facility],non-owned Affiliates and Associated Physician Practices is amultiple site organization consisting of ambulatory clinics and hospital sitesin [place], [place], [place] and [place]. This disclosure is being madepursuant to the Care Everywhere program and may not contain all information available regarding this patient. Last updated 17.[facility] Allergies No known active allergies Medications * [...] Comments Blood Pressure 111/72 02/08/2009 4:00 PM POT PUSHER Pulse 99 02/08/2009 4:00 PM POT PUSHER Temperature 36.2 C (97.2 F) 02/08/2009 4:00 PM POT PUSHER Respiratory Rate 16 02/08/2009 4:00 PM POT PUSHER Oxygen Saturation 98% 02/08/2009 4:00 PM POT PUSHER Inhaled Oxygen Concentration - - Weight 106.6 kg (235 lb 0.2 oz) 009 10:32 AM POT PUSHER Height 182.9 cm (6' 0.01 ) 01/29/2009 1 0:32 AM POT PUSHER Body Mass Index 31.87 01/29/2009 10:32 AM POT PUSHER Plan of Treatment Health Maintenance Due Date [...] VACCINE (1 of 2) 2013 COVID-19 VACCINE (1 - 2023-2 5 season) 2023 DEPRESSION SCREENING 03/09/2024 INFLUENZA VACCINE (Season Ended) 2024 Respiratory Syncytial Virus (RSV) Vaccine Pt: or [...] to complete this topic MENINGOCOCCAL (Group B) VACC INE SHARED DECISION-MAKING Aged Out No longer eligibl e based on patient's age to complete this topic MENINGOCOCCAL GROUPS A/C/Y/W VACCINE Aged Out No longer eligible b ased on patient's age to complete this topic PNEUMOCOCCAL VACCINE Aged Out No long er eligible based on patient's age to complete this topic
--- NOTE | 2024-06-15 09:34 | ECG_ITS ---
Test Date: 2024-06-15 10:06:41 Measurements Intervals [place] Rate: 65 P: 14 [place]: 171 QRS: 30 QRSD: 89 T: 8 QT: 394 QTc: 411 Interpretive Statements SINUS RHYTHM NONSPECIFIC T-WAVE ABNORMALITY- ANT/INF LEADS BASELINE ARTIFACT- III, V1-V3 BORDERLINE ECG No previous ECG available for comparison Electronically Signed On 06-15-2024 10:08:39 CDT by Yaya Gooden D.O.
[2024-06-15 10:29] LABS: Basophils Absolute Auto 0.1 K/mm3 (0.0-0.1); Basophils Percent Auto 0.8 % (0.2-1.2); Eosinophils Absolute Auto 0.3 K/mm3 (0-0.3); Eosinophils Percent Auto 3.9 % (0-4.4); Hematocrit 44.4 % (42.0-52.0); Immature Granulocyte Absolute 0.02 K/mm3 (0.00-0.031); Immature Granulocyte Percent A 0.3 % (0-0.5); Lymphocytes Absolute Auto 1.73 K/mm3 (0.9-3.2); Lymphocytes Percent Auto 27.2 % (18.3-44.2); Mean Corpuscular HGB Conc 33.8 g/dl (32-36); Mean Corpuscular Hemoglobin 29.4 pg (26-34); Mean Corpuscular Volume 86.9 fl (80-100); Mean Platelet Volume 10.3 fl (7.4-10.4); Monocytes Absolute Auto 0.6 K/mm3 (0.1-0.6); Monocytes Percent Auto 9.1 % (2.6-8.5); Neutrophils Absolute Auto 3.7 K/mm3 (1.3-6.7); Neutrophils Percent Auto 58.7 % (45.5-73.1); Platelet Count Result 200 k/mm3 (150-375); Red Blood Count 5.11 M/mm3 (4.6-6.20); Red Cell Distribution Width 13.5 % (11.5-14.5); White Blood Count 6.4 K/mm3 (4.5-10.0)
[2024-06-15 10:37] LABS: Add Urine Microscopic? YES; Appearance Urine Clear (Clear); Bacteria Urine None Seen /hpf; Bilirubin Urine Negative (Negative); Blood Urine Negative (Negative); Color Urine Yellow (Yellow); Glucose Urine UA Negative (Negative); Ketones Urine Negative (Negative); Leukocyte Esterase Ur Trace LEU/UL (Negative); Nitrate Urine Negative (Negative); Non Pathogenic Casts 0-2; Protein Urine Negative (Negative); RBC Urine 0-2 /hpf (0-2); Specific Grav Ur 1.018 (1.001-1.035); Squamous Epithelial Cell Urine None Seen /hpf (Few); WBC Urine 0-5 /hpf (0-3); pH Urine 5.5 (5.0-9.0)
[2024-06-15 10:41] LABS: Prothrombin Time 14.1 Seconds (11.1-14.7)
[2024-06-15 10:42] LABS: Partial Thromboplastin Time 27.9 Seconds (22.3-36.8)
== END 2024-06-15 08:47 | disposition home or self-care (01) ==
PROVIDERS: PCP Family Medicine; Visit Provider Urology
DX: C61 Malignant neoplasm of prostate (principal); Z01.818 Encounter for other preprocedural examination
CPT/HCPCS: 36415; 71046; 81001; 85025; 85610; 85730; 86850; 86900; 86901; 93005

== ENCOUNTER 2024-06-23 00:48 | Day surgery (SDC) | payer BC, SELFPAY ==
--- NOTE | 2024-06-15 07:36 | PM.IMHP ---
H&P: HPI History of Present Illness Date/Time: 06/15/24 07:36 Chief Complaint: Prostate cancer Review of Systems Review of Systems: 59-year-old male was found to have a PSA elevation to 7.0 in March 2024. Prostate ultrasound and biopsy revealed a 31 g prostate with 2 of 12 cores showing Mary Esther grade group 2 prostate cancer. Domonique scale suggest a potential for lymph node of our mint of just 1%. Decipher score was low. Staging CT scan and bone scan showed no evidence of metastatic disease. After thorough discussion of the therapeutic options including active surveillance, radiation therapy and robotic prostatectomy he is elected for the latter. He is aware the risk and including, but not limited to, adverse cardiopulmonary events, rectal injury, urinary incontinence and erectile dysfunction. Cardiovascular: Cardiovascular: Denies chest pain, Denies lightheadedness, Denies palpitations and Denies dyspnea Respiratory: Respiratory: Denies dyspnea Gastrointestinal: Gastrointestinal: Denies diarrhea, Denies nausea and Denies vomiting Genitourinary: Genitourinary: Denies hematuria and Denies dysuria Endocrine: Endocrine: Denies palpitations [facility] Past Medical History Medical History (Updated 05/23/24 @ 17:25 by Mikel Hart MD) Prostate cancer Arthritis of ankle, left, degenerative Left ankle instability Ankle pain, left Carpal tunnel syndrome High prostate specific antigen (PSA) Obesity Spinal stenosis, lumbar Degenerative disc disease, lumbar Osteoarthritis of knees, bilateral Surgical History Surgical History H/O cervical spinal arthrodesis H/O spinal fusion L4-5 Family History Family History Father Hypertension Family history of coronary artery disease Social History Social History Social History: Smoking status: Never smoker Second hand tobacco smoke exposure: No Alcohol intake: current Alcohol use details: Occasionally Substance use: never Substance use type: does not use Do You Feel Safe in your Home?: Yes Lack of Transportation: No Lack of Food: Never True Current Housing: I Have Housing Concerned About Future Housing: No Difficulty Paying Gas/Electric Bills: No Difficulty Paying for Meds: No Currently Unemployed: No Education: Don't Know Difficulty w/ Childcare or Family Care: No Living arrangements: with family Occupation/Education: occupation 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 Gender identity (if verbalized by the patient): Male Sexual Orientation (if Verbalized by the Patient): Straight or Heterosexual Meds Home Medications and Allergies Home Medications ?Medication ?Instructions ?Recorded ?Confirmed ?Type rosuvastatin 20 mg tablet See Rx Instructions .Route 04/19/24 05/23/24 Rx .COMPLEX #90 tabs blood sugar diagnostic (OneTouch #100 ea 05/23/24 05/23/24 Rx Verio test strips) blood-glucose meter (OneTouch #1 ea 05/23/24 05/23/24 Rx Verio Flex Meter) hydrochlorothiazide 25 mg tablet 25 mg PO DAILY #90 tabs 05/23/24 05/23/24 Rx lancets 33 gauge (OneTouch Delica #100 ea 05/23/24 05/23/24 Rx Plus Lancet) lancing device with lancets kit #1 ea 05/23/24 05/23/24 Rx ([facility] Delica Plus Lancing Device kit) lisinopril 30 mg tablet 30 mg PO DAILY #30 tabs 05/23/24 05/23/24 Rx metformin 500 mg tablet,extended 500 mg PO DAILY #120 tabs 05/23/24 05/23/24 Rx release 24 hr Allergies Allergy/AdvReac Type Severity Reaction Status Date / Time No Known Allergies Allergy Verified 05/23/24 15:34 Exam Const: General: no acute distress Resp: Effort & Inspection: normal respiratory effort GI: Inspection: non-distended GI Palp: No abdominal tenderness and No Guarding due to palpation present (GI) Auscultation: normal bowel sounds Assessment and Plan Assessment and plan (1) Prostate cancer: Code(s): C61 - Malignant neoplasm of prostate Status: Acute Assessment and Plan: Patient with clinically localized favorable intermediate risk prostate cancer Robotic assisted radical prostatectomy with possible bilateral pelvic lymphadenectomy
[2024-06-15 09:03] VITALS: BP 126/76; PULSE 74; RESP 16; TEMP 37.1; O2SAT 98; BMI 34.9
--- NOTE | 2024-06-15 09:21 | PC.NURSE ---
Addendum entered by Neisha Veras RN 06/15/24 09:26: Pt is aware of Bowel Prep and Diet for the [address] Gan also SUGEY Original Note: Report to the Outpatient Waiting Room, entrance under the green pavilion located off [facility], at time __0600am on date __06/23/24 . Planned Procedure Time: ___0730am .? Time changes happen often and if your time is changed the preop area will call you the afternoon before. - You and your visitor will be asked to self-screen and do not enter if you have any COVID symptoms. Please call surgeon if you need to reschedule. - A mask is optional within the hospital at this time. Patients may have clear liquids (water, carbonated beverages, clear teas, apple juice) until 3 hours prior to surgery with a maximum of 20 ounces. - No food for [address] Gan until time of surgery and no smoking, or chewing tobacco (or any form of nicotine). No chewing gum, candy or mints. (0430am) Take only the following medications with a SIP of water on the morning of surgery: ____Tylenol if needed DO NOT STOP ANY OF YOUR OTHER PRESCRIPTION MEDICATIONS PRIOR TO SURGERY EXCEPT THE FOLLOWING Hold all vitamins and supplements for 3 days per anesthesiologist. Date to take last dose___ 06/19/24___- Medications to discontinue per physician Ibuprofen 7 days prior to surgery per Dr Gan Date to take last dose____06/14/24 Please no make-up, nail kinyarwanda, hairspray, perfume, deodorant, or body powder the day of surgery.? No jewelry (including any body piercings) or valuables the day of surgery, leave them at home.? Please take a shower or bath the night before, or the morning of, surgery with an antibacterial soap.? Wear comfortable, loose fitting clothing.? - Jewelry must be removed prior to entering the operating room.? Rings and piercings that are not removed may be cut off. - The hospital will not accept responsibility for valuables.? - Please leave all valuables, including medications, at home the day of surgery. If you are going home after surgery, a licensed full service vending driver must drive you home.? - NO public transportation without another adult if you receive anesthesia. - We recommend that an adult stay with you for 24 hours following discharge. - We also recommend that you do not drive, make important decision, drink alcoholic beverages, or take any drugs that were not prescribed by your health care provider for at least 24 hours after your discharge time. Follow any additional instructions given to you from your surgeon. Telephone instructions given to ___Patient and asked if any additional questions and then verbalized understanding. Patient advised to call surgeon office or pre surgery nurse liaison [phone] if any additional questions.
--- NOTE | 2024-06-22 14:37 | P.PNAN_ITS ---
Anes - Initial Pre Proc Eval Procedure: Operation Date: 06/23/24 07:30 Proposed Procedures p Robotic Assisted Laparoscopic Prostatectomy - Gaston Gan MD Date/Time: 06/22/24 14:37 Surgeon: Gaston Gan MD Pre Op Diagnosis: Prostate CA Patient Data Age: 59 Gender: M Height: 1.8 m Weight: 113.6 kg Last Vital Signs Temp 98.7 F 06/15/24 09:03 Pulse 74 06/15/24 09:03 Resp 16 06/15/24 09:03 BP 126/76 06/15/24 09:03 Pulse Ox 98 06/15/24 09:03 O2 Del Method Room Air 06/15/24 09:03 Allergies Allergy/AdvReac Type Severity Reaction Status Date / Time No Known Allergies Allergy Verified 06/23/24 06:08 Home Medications ?Medication ?Instructions ?Recorded ?Confirmed ?Type rosuvastatin 20 mg tablet See Rx Instructions .Route 04/19/24 06/23/24 Rx .COMPLEX #90 tabs blood sugar diagnostic (OneTouch #100 ea 05/23/24 06/15/24 Rx Verio test strips) blood-glucose meter (OneTouch #1 ea 05/23/24 06/15/24 Rx Verio Flex Meter) hydrochlorothiazide 25 mg tablet 25 mg PO DAILY #90 tabs 05/23/24 06/23/24 Rx lancets 33 gauge (OneTouch Delica #100 ea 05/23/24 06/15/24 Rx Plus Lancet) lancing device with lancets kit #1 ea 05/23/24 06/15/24 Rx (OneTouch Delica Plus Lancing Device kit) lisinopril 30 mg tablet 30 mg PO DAILY #30 tabs 05/23/24 06/23/24 Rx metformin 500 mg tablet,extended 2,000 mg PO DAILY 06/15/24 06/23/24 History release 24 hr Patient hx anesthesia problems: none Family hx anesthesia problems: none Results Review: All pre-operative results and documents have been reviewed as part of the pre- operative evaluation. [facility] Past Medical History Medical History (Updated 05/23/24 @ 17:25 by Mikel Hart MD) Prostate cancer Arthritis of ankle, left, degenerative Left ankle instability Ankle pain, left Carpal tunnel syndrome High prostate specific antigen (PSA) Obesity Spinal stenosis, lumbar Degenerative disc disease, lumbar Osteoarthritis of knees, bilateral Surgical History Surgical History H/O cervical spinal arthrodesis H/O spinal fusion L4-5 Family History Family History Father Hypertension Family history of coronary artery disease Social History Social History Social History: Smoking status: Never smoker Second hand tobacco smoke exposure: No Alcohol intake: current Alcohol use details: Occasionally Substance use: never Substance use type: does not use Do You Feel Safe in your Home?: Yes Lack of Transportation: No Lack of Food: Never True Current Housing: I Have Housing Concerned About Future Housing: No Difficulty Paying Gas/Electric Bills: No Difficulty Paying for Meds: No Currently Unemployed: No Education: Don't Know Difficulty w/ Childcare or Family Care: No Living arrangements: with family Additional living arrangements comments: Occupation/Education: occupation 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 Gender identity (if verbalized by the patient): Male Sexual Orientation (if Verbalized by the Patient): Straight or Heterosexual Spiritual care concerns: No Anes - Eval Final PreProcedure Day of Procedure 06/22/24 14:37 Patient weight: obese Heart: regular rate and rhythm Lungs: clear to auscultation Airway: Mallampati scale Neurological: alert and oriented Last oral intake: >/= 8 hours ASA classification: III Emergent: no Anesthetic plan: proceed Anesthesia type and monitoring: general ETT and standard monitoring Results Review: All pre-operative results and documents have been reviewed as part of the pre- operative evaluation. Informed Consent: The patient's anesthetic plan and its attendant risks and benefits were discussed with the patient/family/POA. Questions were solicited and answers provided to the satisfaction of the patient/family/POA.
[2024-06-23] VITALS (18 sets, daily range): BP systolic 122–139; BP diastolic 65–89; PULSE 68–78; RESP 12–20; TEMP 36.2–36.6; O2SAT 92–100; BMI 33.7
--- OUTSIDE RECORDS SUMMARY | 2024-06-23 00:50 | XMS_ITS | Clinical Summary ---
Author Organization [facility] Address [address] [place] [address] Care Team Providers Care Assembling Motor Builder Name Role Phone Unavailable Primary Care Provider Unavailabl e Source Comments [facility],non-owned Affiliates and Associated Physician Practices is amultiple site organization consisting of ambulatory clinics and hospital sitesin [place], [place], [place] and [place]. This disclosure is being madepursuant to the Care Everywhere program and may not contain all information available regarding this patient. Last updated 17.[facility] Allergies No known active allergies Medications * Be aware that medications may not be up to date on this document. Alwaysverify current medications with the patient. lisinopril-hydro chlorothiazide (PRINIZIDE; ZESTORETIC) 20-25 MG tablet Take 1 Tab by mouth daily. Active simvastatin (ZOCOR) 40 MG tablet Take 40 mg by mouth at bedtime. Active VOLTAREN PO Take 75 mg by mouth 2 times daily. Active hydrocodone-acet aminophen (VICODIN) 5-500 MG tablet Take 1-2 Tabs [...] Recorded Sex Assigned at Not on file Legal Sex Male 8:13 AM PLATEN PRESS FEEDER Gender Identity Not on file Sexual Orientation Not on file Last Filed Vital Signs Vital Sign Reading Time Taken Comments Blood Pressure 111/72 02/08/2009 4:00 PM PLATEN PRESS FEEDER Pulse 99 02/08/2009 4:00 PM PLATEN PRESS FEEDER Temperature 36.2 C (97.2 F) 02/08/2009 4:00 PM PLATEN PRESS FEEDER Respiratory Rate 16 02/08/2009 4:00 PM PLATEN PRESS FEEDER Oxygen Saturation 98% 02/08/2009 4:00 PM PLATEN PRESS FEEDER Inhaled Oxygen Concentration - - Weight 106.6 kg (235 lb 0.2 oz) 009 10:32 AM PLATEN PRESS FEEDER Height 182.9 cm (6' 0.01 ) 01/29/2009 1 0:32 AM PLATEN PRESS FEEDER Body Mass Index 31.87 01/29/2009 10:32 AM PLATEN PRESS FEEDER Plan of Treatment Health Maintenance Due Date [...]
--- NOTE | 2024-06-23 06:13 | WPDHPUPDATE1 ---
History and Physical Update Update Date/Time: 06/23/24 06:13 History and Physical has been reviewed, including an updated exam of the patient. There are NO changes in the patient's condition. Risks, benefits, and alternatives have been discussed and questions answered. Patient agrees to proceed with procedure.
[2024-06-23] MEDS: LACTATED RINGERS 1,000 ML 30 ML IV CONT ×2 (06:25→11:16)
[2024-06-23 06:36] LABS: Glucose Point of Care 102 mg/dl (65-105)
[2024-06-23] MEDS: fentaNYL CITRATE INJ (*CRX) 100 MCG/2 ML VIAL 25 MCG IV PUSH ×8 (11:29→12:21)
--- NOTE | 2024-06-23 11:29 | P.OP_ITS ---
Procedure Note - Detailed Date of Procedure 06/23/24 Pre-op Diagnosis Prostate CA Post-op Diagnosis Same Procedure Performed Robotic assisted radical prostatectomy, bilateral pelvic lymph that active Surgeon Gaston Gan MD Anesthesia General Description of Procedure The patient was brought to the operative suite, where he was prepped and draped in routine sterile fashion while in a dorsal lithotomy, deep Trendelenburg position. A supraumbilical 10 mm trocar was placed after insufflation of the abdomen with a Veress needle. Three robotic ports were then placed under direct vision. Two of these were placed in the right lower quadrant - 10 cm and 20 cm lateral to, and in line with, the umbilicus. A third robotic trocar was placed 10 cm to the left of the umbilicus, and 20 cm to the left of the umbilicus, a 12 mm standard laparoscopic trocar was placed to be used as an nurse practitioner physician assistant port. Lastly, a 5 mm trocar was placed in the left upper quadrant midway between the umbilicus and the left robotic trocar. Attention was then turned to the prostatectomy. I opted for a posterior approach in this patient. An incision was made in the parietal peritoneum along the posterior bladder/posterior prostate about 2 cm above the reflection of the peritoneum over the anterior rectum. The seminal vesicles and vas deferens were immediately identified. Dissection is undertaken in a fashion so as to avoid electrocautery as much as possible, particularly near the tips of the seminal vesicles. Dissection was also carried out in the midline so as to avoid any encounters with the ureters. The vas deferens and the seminal vesicles were dissected in their entirety to the base of the prostate. The plane anterior to Denoviller's fascia, anterior to the rectum and posterior to the prostate was then developed. I then dropped the bladder by incising the anterior parietal peritoneum just lateral to the median umbilical ligaments bilaterally. The bladder was dropped from the anterior abdominal and pelvic wall. The endopelvic fascia was identified and incised bilaterally, allowing for dissection of the posterior- lateral aspect of the prostate. The puboprostatic ligaments were transected near their origin from the posterior pubic ramus. This posterior lateral dissection of the prostate is also undertaken in a fashion so as to avoid electrocautery as much as possible. The dorsal vein of the penis is then secured with an 0 -Vicryl ligature. Attention is then turned to the bladder neck. The anterior bladder neck is incised at the vesico-prostatic junction. The previously placed urethral catheter was drawn through the urethrotomy. A very small bladder neck was maintained throughout the remainder of this dissection. The posterior bladder neck was incised in a fashion so as to avoid any injury to the ureteral orifices. Again, the small aperture of the bladder neck was maintained. The previously dissected vas deferens and the seminal vesicles were brought through the posterior bladder neck incision. The lateral prostatic pedicles were then carefully dissected from the lateral aspect of the prostate bilaterally. The prostatic pedicles were secured with Weck clips and transected. The neurovascular bundles were carefully dissected from the posterior-lateral aspect of the prostate. The dorsal vein of the penis was incised with electrocautery. Using cold scissors, the urethra was incised. After withdrawing the previously placed urethral catheter, the posterior urethra was sharply incised, as was the rectalurethralis muscle. Attention was then turned to an extended bilateral pelvic lymphadenectomy. The limits of this dissection were similar bilaterally. Specifically, the limits were the bifurcation of the common iliac vein proximally, the Fer's ligament distally, the pevic floor posteriorly. the pelvic sidewall laterally and the anterior aspect to the external iliac artery laterally. This dissection was undertaken with care to avoid any injury to the obturator nerve. The prostate, seminal vesicles and pelvic nodes were then placed in a specimen b ag. The pelvis was copiously irrigated with saline. Urethrovesical anastomosis was then undertaken using similar two 3-0 V-lock sutures across a 20-Romansh urethral catheter. The catheter was irrigated, and there was found to be no evidence of an irrigant extravasation. I opted not to place a pelvic drain. The robot is undocked, and the trocars were removed. The specimen was removed through the supraumbilical incision. The anterior rectus fascia at that suprapubic site was closed with a looped 0-PDS. Subcutaneous tissue was irrigated. Skin incisions were closed with 4-0 Vicryl subcuticular. Blood loss throughout this was 150cc. The patient tolerated the procedure well, was taken to recovery room in good condition. Estimated Blood Loss 150
[2024-06-23 11:46] LABS: Glucose Point of Care 141 mg/dl (65-105)
[2024-06-23] MEDS: HYOSCYAMINE SULFATE 0.125 MG TABLET PO (12:39)
[2024-06-23] MEDS: HYDROmorphone HCL INJ (*CRX) 2 MG/ML VIAL 0.5 MG IV PUSH ×2 (13:04→13:32)
--- NOTE | 2024-06-23 14:09 | ADMGEN ---
This patient, Dominic Palumbo, was admitted to [facility] Surg Room 302-01. Patient/family oriented to hospital policies and general routines including ID bracelet, bed and alarms, visiting hours, pain management, procedures, bathroom and other care routines, personal items, smoking policy, room service/diet, and visiting hours. Information on how to activate the Rapid Response Team has been discussed. Patient/Family are encouraged to report perceived risks to care and to ask questions if they do not understand what they are told or what they should do.
[2024-06-23] MEDS: KETOROLAC 30 MG/ML VIAL (*BKC) IV PUSH ×2 (14:19→20:38)
[2024-06-23] MEDS: LACTATED RINGERS 1,000 ML 125 ML IV CONT ×2 (14:53→22:26)
[2024-06-23 18:50] LABS: Glucose Point of Care 185 mg/dl (65-105)
[2024-06-24] MEDS: KETOROLAC 30 MG/ML VIAL (*BKC) IV PUSH (02:30)
[2024-06-24 05:39] LABS: Hematocrit 34.5 % (42.0-52.0); Hemoglobin 11.9 g/dL (14.0-18.0)
[2024-06-24 05:45] VITALS: BP 126/67; PULSE 70; RESP 20; TEMP 35.8; O2SAT 94
[2024-06-24] MEDS: LACTATED RINGERS 1,000 ML 125 ML IV CONT (05:46)
[2024-06-24 05:53] LABS: Anion Gap 6 mmol/L (4-12); Blood Urea Nitrogen 21 mg/dL (9-20); Calcium 8.2 mg/dL (8.4-10.2); Carbon Dioxide 23 mmol/L (22-30); Chloride 104 mmol/L (98-107); Estimated CRCL calculation 91 ml/min; Estimated Glomerular Filt Rate > 60; Glucose 124 mg/dL (65-110); Potassium 4.1 mmol/L (3.4-5.0); Sodium 133 mmol/L (137-145)
--- NOTE | 2024-06-24 06:51 | WPDUROPN2 ---
Progress Note: A&P Assessment and Plan (1) Prostate cancer: Code(s): C61 - Malignant neoplasm of prostate Status: Acute Assessment and Plan: Doing well POD #1 - relatively pain-free and tolerating diet. Increase diet/ambulation this morning. Anticipate discharge this afternoon. Subjective Subjective Date/Time Seen: 06/24/24 06:51 Interval history: Comfortable, slept well overnight Review of Systems Cardiovascular: Cardiovascular: Denies chest pain, Denies lightheadedness, Denies palpitations and Denies dyspnea Respiratory: Respiratory: Denies dyspnea Gastrointestinal: Gastrointestinal: Denies diarrhea, Denies nausea and Denies vomiting Genitourinary: Genitourinary: Denies hematuria and Denies dysuria Endocrine: Endocrine: Denies palpitations Exam Const: General: no acute distress Resp: Effort & Inspection: normal respiratory effort GI: Inspection: non-distended GI Palp: No abdominal tenderness and No Guarding due to palpation present (GI) Auscultation: normal bowel sounds Urinary Catheter: Urinary Catheter: patent and draining and urine clear Objective Data Vital Signs Vital Signs: Vital Signs - 24 hr 06/23/24 11:16 06/23/24 11:30 06/23/24 11:45 Temperature 97.8 F Pulse Rate 78 69 69 Respiratory Rate 18 14 14 Blood Pressure 123/71 133/77 131/81 Pulse Oximetry 96 96 96 Oxygen Delivery Simple Face Mask Simple Face Mask Simple Face Mask Oxygen Flow Rate 8 8 8 06/23/24 12:00 06/23/24 12:15 06/23/24 12:30 Temperature Pulse Rate 72 71 73 Respiratory Rate 14 14 12 Blood Pressure 136/81 139/75 131/82 Pulse Oximetry 98 98 94 Oxygen Delivery Simple Face Mask Simple Face Mask Nasal Cannula Oxygen Flow Rate 8 8 3 06/23/24 12:45 06/23/24 13:00 06/23/24 13:15 Temperature Pulse Rate 74 75 Respiratory Rate 12 16 14 Blood Pressure 136/83 134/86 137/85 Pulse Oximetry 96 96 96 Oxygen Delivery Nasal Cannula Nasal Cannula Nasal Cannula Oxygen Flow Rate 2 2 2 06/23/24 13:30 06/23/24 13:45 06/23/24 14:25 Temperature Pulse Rate 78 76 76 Respiratory Rate 18 16 14 Blood Pressure 132/80 138/87 137/77 Pulse Oximetry 96 96 98 Oxygen Delivery Nasal Cannula Nasal Cannula Oxygen Flow Rate 2 2 06/23/24 14:40 06/23/24 15:40 06/23/24 16:10 Temperature 97.5 F L 97.1 F L Pulse Rate 76 74 69 Respiratory Rate 14 14 14 Blood Pressure 134/89 122/65 127/68 Pulse Oximetry 96 96 99 Oxygen Delivery Oxygen Flow Rate 06/23/24 18:09 06/23/24 20:00 06/23/24 20:20 Temperature 98 F Pulse Rate 68 Respiratory Rate 20 Blood Pressure 137/69 Pulse Oximetry 96 92 Oxygen Delivery Room Air Room Air Oxygen Flow Rate 06/24/24 05:45 Temperature 96.5 F L Pulse Rate 70 Respiratory Rate 20 Blood Pressure 126/67 Pulse Oximetry 94 Oxygen Delivery Oxygen Flow Rate Intake/Output Intake/Output: Intake & Output 06/21/24 06/22/24 06/23/24 06/24/24 23:59 23:59 23:59 23:59 Intake Total 1683.8 1366.7 Output Total 610 750 Balance 1073.8 616.7 Meds/Results Medications: Active Medications Generic Name Dose Route Start Last Admin Trade Name Freq PRN Reason Stop Dose Admin Hydrocodone Bitart/Acetaminophen 1 tab 06/23/24 15:30 Hydrocodone/Acetaminophen (*Crx) 7.5-325 Mg Tablet PO Q6H PRN Pain Rated 7-10 Hydrochlorothiazide 25 mg 06/24/24 09:00 Hydrochlorothiazide 25 Mg Tablet PO DAILY SHAZIA Hyoscyamine 0.125 mg 06/23/24 11:26 Hyoscyamine Sulfate 0.125 Mg Tablet SUBLINGUAL Q4H PRN Bladder Spasm Lactated Ringer's 1,000 mls @ 125 mls/hr 06/23/24 11:30 06/24/24 05:46 Lr - Lactated Ringers Iv IV CONT 125 mls/hr .Q8H SHAZIA Administration Ketorolac Tromethamine 30 mg 06/23/24 11:26 06/24/24 02:30 Ketorolac 30 Mg/Ml Vial (*Bkc) IV PUSH 06/24/24 11:25 30 mg Q6H PRN Administration Pain Rated 4-6 Levofloxacin 500 mg 06/24/24 09:00 Levofloxacin 500 Mg Tablet PO DAILY [facility] Lisinopril 30 mg 06/24/24 09:00 Lisinopril 10 Mg Tablet PO DAILY [facility] Morphine Sulfate 1 mg 06/23/24 11:26 Morphine Sulfate (*Crx) 2 Mg/Ml Inj IV PUSH Q2H PRN Pain Rated 7-10 Naloxone HCl 0.1 mg 06/23/24 11:26 Naloxone Hcl 0.4 Mg/Ml Vial IV PUSH Q2M PRN Opiate Reversal Rosuvastatin Calcium 20 mg 06/24/24 09:00 Rosuvastatin 20 Mg Tablet BY MOUTH DAILY [facility] Labs Labs: Laboratory Results - last 24 hr 06/23/24 06/23/24 06/24/24 11:44 18:46 05:27 Hgb 11.9 L D Hct 34.5 L Sodium 133 L Potassium 4.1 Chloride 104 Carbon Dioxide 23 Anion Gap 6 BUN 21 H Creatinine 0.95 Estim Creat Clear Calc 91 Estimated GFR > 60 Glucose 124 H POC Capillary Glucose 141 H 185 H Calcium 8.2 L
[2024-06-24] MEDS: ROSUVASTATIN 20 MG TABLET BY MOUTH (10:04)
[2024-06-24] MEDS: lisinopriL 10 MG TABLET 30 MG PO (10:04)
[2024-06-24] MEDS: levoFLOXacin 500 MG TABLET PO (10:04)
[2024-06-24] MEDS: hydroCHLOROthiazide 25 MG TABLET PO (10:04)
[2024-06-24 13:00] VITALS: BMI 33.7
--- NOTE | 2024-06-24 13:50 | PM.DS ---
DS: Admitting Diagnosis Discharge Date 06/24/2024 Admitting Diagnosis Prostate cancer DS: Summary Hospital Course Hospital Course: This patient was admitted on the morning of his planned robotic prostatectomy. This procedure was uneventful, as was his postoperative course. By the evening of the procedure he was sitting at the bedside in tolerating a liquid diet. The following morning he was ambulating freely and tolerating regular food. His catheter drainage remained essentially clear throughout. His postoperative hemoglobin and serum creatinine were unremarkable. At the time of discharge he has been instructed in appropriate care for his Morrow catheter with both a leg bag and bedside bag. He will be discharged with plans to follow-up in 1 week with a cystogram. Time Spent with Patient Time attestation: Total time spent providing and/or coordinating discharge services: DS: Data Data Completed and Pending Pending studies at discharge: Pending at discharge 06/23/24 10:56 Surgical [PTH] Routine Surgical [PTH] Routine Surgical [PTH] Routine Labs on day of discharge: Labs from last 24 hours 06/24/24 06/23/24 05:27 18:46 Hgb 11.9 L D Hct 34.5 L Sodium 133 L Potassium 4.1 Chloride 104 Carbon Dioxide 23 Anion Gap 6 BUN 21 H Creatinine 0.95 Estim Creat Clear Calc 91 Estimated GFR > 60 Glucose 124 H POC Capillary Glucose 185 H Calcium 8.2 L Discharge Plan Discharge Patient Disposition: Home Discharge Instructions: 1) Morrow catheter -> leg bag / bedside bag at night. 2) No lifting/straining >15lbs. x3 weeks. 3) No driving x1-week. 4) Resume normal, pre-operative diet. 5) My office will contact regarding follow-up in 1-week with cystogram. Patient Language: Hungarian Stand Alone Forms: General Discharge Instructions Discharge Orders: Discharge Order (Routine); Ordered 06/24/24 Ordered By: Gaston Gan Discharge Medications: New docusate sodium [Colace] 100 mg capsule 100 mg PO DAILY Qty: 30 0RF hyoscyamine sulfate 0.125 mg tablet 0.125 mg PO Q6H PRN (Reason: bladder spasms) Qty: 20 2RF ketorolac 10 mg tablet 10 mg PO Q6H 5 Days Qty: 20 0RF cephalexin 500 mg capsule 500 mg PO Q8H Qty: 9 0RF Continued hydrochlorothiazide 25 mg tablet 25 mg PO DAILY Qty: 90 3RF lisinopril 30 mg tablet 30 mg PO DAILY Qty: 30 2RF (DME) OneTouch Verio test strips Strip See Rx Instructions .Route Qty: 100 3RF Rx Instructions: test qam fasting (DME) blood-glucose meter [OneTouch Verio Flex meter] Misc See Rx Instructions .Route Qty: 1 0RF Rx Instructions: test qam fasting (DME) lancing device with lancets [OneTouch Delica Plus Lanc Dev] Kit See Rx Instructions .Route Qty: 1 0RF Rx Instructions: test qam fasting (DME) lancets [OneTouch Delica Plus Lancet] 33 gauge misc See Rx Instructions .Route Qty: 100 3RF Rx Instructions: test qam fasting metformin 500 mg tablet extended release 24 hr 2,000 mg PO DAILY Rx Instructions: 1 po qd x 1 wk, then 2 po qd x 1 wk, then 3 po qd x 1 wk, then 4 po qd rosuvastatin 20 mg tablet See Rx Instructions .ROUTE .COMPLEX Qty: 90 2RF Dose Instruction: Take 1 tablet by mouth once daily Rx Instructions: Take 1 tablet by mouth once daily
== END 2024-06-24 15:00 | disposition home or self-care (01) ==
LOC: ANHSURGERY 05:49 → ANH3MEDSUR 14:04
PROVIDERS: PCP Family Medicine; Visit Provider Urology
PROC: 0VT04ZZ Resection of Prostate, Percutaneous Endoscopic Approach (ICD-10-PCS; CPT 55867; principal; 2024-06-23 07:30)
DX: C61 Malignant neoplasm of prostate (principal); E66.9 Obesity, unspecified; Z68.33 Body mass index [BMI] 33.0-33.9, adult; Z79.84 Long term (current) use of oral hypoglycemic drugs
CPT/HCPCS: 55866; 38571; 36415; 80048; 82948; 85014; 85018; 88305; 88309; 88342; A9270; J1100; J1171; J1885; J2003; J2250; J2371; J2405; J2704; J3010; J7030; J7120; Q9968

== ENCOUNTER 2024-06-26 18:17 | Inpatient (IN) | payer BC, SELFPAY ==
[2024-06-26] VITALS (17 sets, daily range): BP systolic 113–146; BP diastolic 71–90; PULSE 67–97; RESP 16–28; TEMP 36.4; O2SAT 94–99
--- NOTE | ~2024-06-26 | XR_ITS ---
EXAM: XR knee RT min 4V DATE: 06/26/2024 20:17 HISTORY: pain/ SWELLING, WARM TO TOUCH . COMPARISON: None available. FINDINGS: Normal mineralization. No fracture or dislocation. No lytic or blastic lesion. Tricompartm ental osteoarthritis. Large volume joint joint fluid. Dystrophic calcifications project over the supr apatellar region. No erosion or periosteal change. Soft tissues within normal limits. IMPRESSION: No acute fracture or dislocation. Large right knee joint effusion. Reviewed, dictated and finalized at location K.
--- NOTE | ~2024-06-26 | US_ITS ---
EXAMINATION: US venous doppler LE RT DATE: 06/27/2024 12:41 INDICATION: Right lower limb pain and swelling TECHNIQUE: Grayscale ultrasound images without and with compression and Doppler ultrasound images of the right lower extremity veins were obtained. COMPARISON: None. FINDINGS: The visualized portions of right common femoral vein, profunda (deep) femoral vein, femoral vein, pop liteal vein, peroneal trunk, posterior tibial veins, peroneal veins, gastrocnemius vein and proximal to mid greater saphenous vein are patent. 6.6 x 2.0 x 3.7 cm hypoechoic Taylor's cyst posterior to the right knee. Moderate-sized knee joint effusion at the suprapatellar pouch. IMPRESSION: 1. No deep venous thrombosis in the right lower limb. 2. Moderate-sized right knee joint effusion and moderate-sized Taylor's cyst. Reviewed, dictated and finalized at location A.
--- OUTSIDE RECORDS SUMMARY | 2024-06-26 18:20 | XMS_ITS | Data Portability ---
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 Name Role Phone ADOLFO PANIAGUA Primary Care Provider ADOLFO PANIAGUA Referring Provider [phone] Assessment Encounter Date Assessment Date Assessment LastModified [...] procedure, administere d by provider 2023 024 In-Office Order, Internal Use Only DO Not Attach Compendium DO Not Attach Compendium, Do Not Delete/merge, [id number] 11:05:22 injection/a spiration joint/bursa (PROC) - in office procedure, administere d by provider 2022 023 [email or web address] In-Office Order, Internal Use Only DO Not Attach Compendium DO Not Attach Compendium, Do Not Delete/merge, [id number] 10:53:14 injection/a spiration joint/bursa (PROC) - in office procedure, administere d by provider 2022 023 [email or web address] In-Office Order, Internal Use Only DO Not Attach Compendium DO Not Attach Compendium, Do Not Delete/merge, [id number] 12:18:02 Surgeries None recorded. Imaging XR, knee [address], [address] [place] [address], [address], 3 15:48:48 Medication Orders Kenalog 10 mg/mL suspension for injection [address] [facility], [address] [place] [address], [address], 4 11:37:03 bupivacaine HCl 0.5 % (5 mg/mL) injection solution [address] [facility], [facility] [place], [address], 4 11:37:03 Kenalog 10 mg/mL suspension for injection [address] [facility], [facility] [place], [address], 3 14:03:42 ropivacaine (PF) 5 mg/mL (0.5 %) injection solution [address], [facility] [place], [address], 3 14:03:42 Kenalog 10 mg/mL suspension for injection [address], [address] [place] [address], [address], 3 12:50:47 ropivacaine (PF) 5 mg/mL (0.5 %) injection solution 2022 023 [email or web address] [facility], [address] [facility], [place], [address], 3 12:50:47 Patient TargetsNo targets recorded. Patient InstructionsNo instructions recorded. Reason for Referral None Reported. Results Created Date Observation Date Name Description Value Unit Range Abnormal Flag Note LastModifiedBy Organization Detail LastModifiedTime 02/07/20 22 XR, knee No observ ation record ed. [id number] [facility] [address], [place], [address], 05/07/2022 03:14:00 07/25/19 23 XR, knee No observ ation record ed. s_gmg [address], [place], [address], 07/24/2022 12:57:07 Result Notes None recorded. Problems Name Problem SNOMED Code Status Onset Date Resolution Date Notes Provider Name and Address Organization Details Recorded Time Pain of bilateral knee joints 1823154938998 04 Active 2022 JOSH Aguayo, [place] [facility] 3 12:16:30 Disorder of shoulder 875990790 Active Not Available [facility] 3 03:03:06 Knee joint effusion 539189807 Active Not Available [facility] 3 03:03:06 Ankle pain 934178271 Active Not Available [facility] 3 03:03:06 Low back pain 760856943 Active Not Available [facility] 3 03:03:06 Osteoarthr itis 589938247 Active Not Available [facility] 3 03:03:06 Foot pain 24642937 Active Not Available [facility] 3 03:03:07 Osteochond ritis dissecans 21247455 Active Not Available [facility] 3 03:03:07 Bilateral osteoarthr itis of knees 2162115100294 07 Active 2022 JOSH Aguayo, [place] - [facility] 10:50:32 Problem Notes None recorded. Procedures Surgical History Date Name Laterality Status Provider Name and Address Organization Details Recorded Time Carpal tunnel surgery completed Not Available [facility] 05/07/2022 02:55:59 Imaging Results Imaging Date Name Status LastModified by Organiz ation Details LastModified Time 02/06/2022 XR, knee completed [id number] [facility] [address], [place], [address], 05/07/2022 03:14:00 07/24/2022 XR, knee completed [facility], [place], [address], 07/24/2022 12:57:07 Procedure Notes None recorded. Medical [...] Updated DateTime 07/24/2022 175.26 cm 37.1 kg/m2 874838.68 g Bibi Jones Etienne [facility] 07/24/2022 12:20:12 Date Recorded Body height Provider Name an d Address Organization Details Last Updated DateTime 02/19/2023 175.26 cm Bibi Jones Etienne [facility] 02/19/2023 10:49:55 Date Recorded Body height Provider Name an d Address Organization Details Last Updated DateTime 05/28/2023 175.26 cm JOSH Aguayo [place] [facility] 05/28/2023 11:03:22 Date Recorded Body mass index (BMI) Body height Body weight Provider Name and Address Organization Details Last Updated DateTime 07/25/2021 39 kg/m2 175.26 cm 434785.39 g Not Available [facility] 05/07/2022 03:00:20 Date Recorded Body height Provider Name an d Address Organization Details Last Updated DateTime 02/06/2022 175.26 cm Not Available [facility] 03:00:19 Social History Question Answer Notes LastModified by Organizat ion Details LastModified Time Tobacco Smoking Status Unknown If Ever Smoked Not Available [facility] 05/07/2022 02:48:56 What Is Your Level Of Alcohol Consumption? Occasional [id number] Information not available 05/07/2022 Sex: Unknown Functional Status None recorded. Mental Status None recorded. Family History Relationship Description Onset Age of this Age Resolved Age Notes LastModified by Organization Details LastModified Time Father Hypertensive disorder [id number] Not available 05/07/2022 02:56:03 Medical History Condition Response BLINDNESS N KIDNEY STONES N CARPAL TUNNEL SYNDROME N MRSA N LUNG DISEASE/DISORDER N HISTORY OF DRUG ABUSE N RADIATION / CHEMOTHERAPY N COPD N ANKLE PAIN N SPORTS INJURY N BLOOD DISEASES N SCHIZOPHRENIA N SHINGLES N DEPRESSION (INCLUDING POST ) N SHOULDER PAIN N BOWEL PROBLEMS N STROKE/TIA N KNEE PAIN N ULCERS [...] high-dose, trivalent, PF 03/09/2014 completed Not Available [facility] 2022 03:13:16 Past Encounters Encounter ID Performer Location Encounter Start Date Encounter Closed Date Diagnosis/Indication Diagnosis SNOMED-CT Code Diagnosis ICD10 Code Diagnosis Note [id number] [facility] [address] [address] 09/13/2020 00:00:00 09/13/2020 10:48:16 [id number] [facility] [address] [address] 09/24/2020 00:00:00 09/24/2020 15:57:26 [id number] [facility] [address] [address] 02/28/2021 00:00:00 02/28/2021 10:29:29 [id number] [facility] [address] [address] 07/25/2021 00:00:00 07/25/2021 10:18:45 [id number] [facility] [address] [address] 02/06/2022 00:00:00 02/06/2022 10:34:18 [id number] ANGY Roger [facility] [address] [address] 07/24/2022 11:58:57 07/24/2022 13:10:36 Pain of bilateral knee joints 1709611766 25624 M25.561 M25.811 [id number] ANGY Roger [facility] [address] [address] 02/19/2023 10:43:24 02/19/2023 12:16:10 Bilateral osteoarthritis of knees 9952794253 95848 M17.0 [id number] ANGY Roger [facility] [address] [address] 05/28/2023 11:01:33 05/28/2023 11:24:55 Bilateral osteoarthritis of knees 7424964142 97744 M17.0 Health Concerns Section Related Observation LastModified by Organization Detai ls LastModified Time None Recorded Concern Status LastModified by Organization Details LastModified Time None Recorded Advance Directives Directive None Recorded Payers Encounter Date Sequence Insurance Name Policy Number Policy Garcia Covered Member ID Garcia Member ID Guarantor Name 07/24/2022 1 [place] [id number] Dominic Cariast [id number] Dominic Linwood 02/19/2023 1 [place] [id number] Dominic Quesadafitt [id number] Dominic Linwood 05/28/2023 1 [place] [id number] Dominic Quesadafitt [id number] Dominic Palumbo
--- OUTSIDE RECORDS SUMMARY | 2024-06-26 18:20 | XMS_ITS | Clinical Summary ---
Author Organization [facility] [employer] Address [address] 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 This disclosure is being madepursuant to the Care Everywhere program and may not contain all information available regarding this patient. 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 Gender Identity Not on file Sexual Orientation Not on file Last Filed Vital Signs Vital Sign Reading Time Taken Comments Blood Pressure 111/72 02/08/2009 4:00 PM WAREHOUSE SHIPPER Pulse 99 02/08/2009 4:00 PM WAREHOUSE SHIPPER Temperature 36.2 C (97.2 F) 02/08/2009 4:00 PM WAREHOUSE SHIPPER Respiratory Rate 16 02/08/2009 4:00 PM WAREHOUSE SHIPPER Oxygen Saturation 98% 02/08/2009 4:00 PM WAREHOUSE SHIPPER Inhaled Oxygen Concentration - - Weight 106.6 kg (235 lb 0.2 oz) 009 10:32 AM WAREHOUSE SHIPPER Height 182.9 cm (6' 0.01 ) 01/29/2009 1 0:32 AM WAREHOUSE SHIPPER Body Mass Index 31.87 01/29/2009 10:32 AM WAREHOUSE SHIPPER Plan of Treatment Health Maintenance Due Date [...]
--- OUTSIDE RECORDS SUMMARY | 2024-06-26 19:59 | XMS_ITS | Clinical Summary ---
Author Organization [facility] [employer] Address [address] [place] [address] Care Team Providers Care Flamer After Lasting Name Role Phone Unavailable Primary Care Provider Unavailabl e Source Comments [facility],non-owned Affiliates and Associated Physician Practices is amultiple site organization consisting of ambulatory clinics and hospital sitesin [place], [place] and [place]. This disclosure is being madepursuant to the Care Everywhere program and may not contain all information available regarding this patient. Last updated 17.[facility] [employer] Allergies No known active allergies Medications * [...] on file Legal Sex Male 8:13 AM [employer]IDENT [employer] Gender Identity Not on file Sexual Orientation Not on file Last Filed Vital Signs Vital Sign Reading Time Taken Comments Blood Pressure 111/72 02/08/2009 4:00 PM [employer] Pulse 99 02/08/2009 4:00 PM [employer] Temperature 36.2 C (97.2 F) 02/08/2009 4:00 PM [employer] Respiratory Rate 16 02/08/2009 4:00 PM [employer] Oxygen Saturation 98% 02/08/2009 4:00 PM [employer] Inhaled Oxygen Concentration - - Weight 106.6 kg (235 lb 0.2 oz) 009 10:32 AM [employer] Height 182.9 cm (6' 0.01 ) 01/29/2009 1 0:32 AM [employer] Body Mass Index 31.87 01/29/2009 10:32 AM [employer] Plan of Treatment Health Maintenance Due Date [...]
--- NOTE | 2024-06-26 20:06 | ED_ITS ---
HPI - Extremity Problem General Chief complaint: Extremity Problem,Nontraumatic Stated complaint: right knee swelling post surgery 06/23/24 Time Seen by Provider: 06/26/24 19:49 History of Present Illness HPI Narrative: Patient is a 59-year-old male who presents to the emergency department this evening complaining of a right swollen knee. Patient states that he woke up and noticed that his right ring knee was very swollen, warm to touch and painful. Patient states that he recently had his prostate removed on the 23 of June, 3 days ago and his was concerned for a blood clot to his right lower extremity. Patient admits that he has had 1 previous history of right knee joint effusion which needed to be tapped many years ago. States that he has always had knee issues and used to get steroid injections his knee. Patient states that he has not had any steroid injections to his knee in over 2 years. Denies any fevers or chills. Denies any recent falls or trauma to the right knee. No new symptoms or concerns at this time. Related Data Home Medications ?Medication ?Instructions ?Recorded ?Confirmed ?Last Taken ?Type metformin 500 mg tablet,extended 2,000 mg PO DAILY 06/15/24 06/23/24 06/22/24 History release 24 hr Allergies Allergy/AdvReac Type Severity Reaction Status Date / Time No Known Allergies Allergy Verified 06/23/24 14:15 Review of Systems 2 Review of Systems: All systems are reviewed and are negative unless stated otherwise in the HPI. [facility] Past Medical History Medical History Prostate cancer Arthritis of ankle, left, degenerative Left ankle instability Ankle pain, left Carpal tunnel syndrome High prostate specific antigen (PSA) Obesity Spinal stenosis, lumbar Degenerative disc disease, lumbar Osteoarthritis of knees, bilateral Surgical History Surgical History H/O cervical spinal arthrodesis H/O spinal fusion L4-5 Family History Family History Father Hypertension Family history of coronary artery disease Social History Social History Social History: Smoking status: Never smoker Second hand tobacco smoke exposure: No Alcohol intake: current Drinks per week: 1 Alcohol use details: Occasionally Substance use: never Substance use type: does not use Do You Feel Safe in your Home?: Yes Lack of Transportation: No Lack of Food: Never True Current Housing: I Have Housing Concerned About Future Housing: No Difficulty Paying Gas/Electric Bills: No Difficulty Paying for Meds: No Currently Unemployed: No Education: Bachelor's Degree Difficulty w/ Childcare or Family Care: No Living arrangements: with family Additional living arrangements comments: Occupation/Education: occupation 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 HEENT: PERRL, no rhinorrhea, no post nasal drip, oropharynx clear. Neck: Trachea midline, no JVD, no lymphadenopathy. Cardiovascular: Regular rate and rhythm, no murmurs, rubs or gallops, no peripheral edema. Respiratory: Clear to auscultation bilaterally, no tachypnea, no wheezing, no rhonchi, no rubs, no respiratory distress. Abdomen: Soft, nontender, nondistended, no rebound, no guarding, no peritoneal signs, laparoscopic incision sites appear to be clean and dry. Musculoskeletal: Very swollen no right knee that is warm to touch, no overlying erythema, decreased range of motion to the right knee joint secondary to swelling and pain. Skin: No rashes or petechia, no signs of infection. Psychiatric: Alert and oriented, normal behavior and judgment for situation. Neurological: Alert and oriented to person, place, and time. Follows all commands. No focal deficits, speech is clear and fluent. Course Vital Signs Vital signs: Vital Signs Temperature 97.5 F L 06/26/24 18:19 Pulse Rate 94 06/26/24 18:19 Respiratory Rate 16 06/26/24 18:19 Blood Pressure 121/71 06/26/24 18:19 Pulse Oximetry 97 06/26/24 18:19 Temperature 97.5 F L 06/26/24 18:19 Pulse Rate 77 06/27/24 00:19 Respiratory Rate 19 06/27/24 00:19 Blood Pressure 143/86 H 06/27/24 00:19 Pulse Oximetry 95 06/27/24 00:19 Procedures Joint Aspiration/Injection Joint Asp./Inject. 1: Joint Aspiration Date: 06/26/24 Joint Aspiration Time: 23:40 Time Out Performed: Yes Side of body: right Joint Aspirated: knee Ultrasound Guidance: No Skin Prep: Povidone-Iodine1% Local Anesthetic: bupivacaine 0.5% Amount of anesthesia used (mL): 3 Needle Size Used: 18G Fluid Obtained: turbid Total fluid obtained (mL): 90 Patient Tolerated Procedure: well and no complications MDM - Extremity (Nontraumatic) MDM Narrative Medical decision making narrative: The patient was evaluated by myself in the emergency department. History is obtained from patient who is an independent historian and physical exam was performed. External medical records were reviewed at this time. IV was established and pertinent tests were ordered. Patient was administered a g of oral Tylenol for pain as he did not want anything stronger. Imaging studies obtained included right knee x-ray which was independently interpreted by me revealing: IMPRESSION: No acute fracture or dislocation. Large right knee joint effusion. Laboratory results obtained revealing an elevated CRP of 5.8 and ESR of 35. Right knee arthrocentesis was performed at this time revealing cloudy yellow synovial fluid. Fluid analysis revealed a turbid fluid with 3000 RBCs, 35,330 nucleated cells, 91% neutrophils. At this time, patient was started on IV antibiotics with vancomycin and Rocephin due to concern for septic arthritis. Differential diagnosis considerations include inflammatory joint effusion, septic arthritis, fractures, dislocation, ACL/PCL injury, meniscal injury. Comorbidities impacting this visit include history of previous right knee joint effusion and history of steroid injections to the right knee I have evaluated and discussed social determinants of health with the patient that could potentially impact subsequent diagnosis and treatment plans. On repeat assessment of the patient, reevaluation revealed that the patient is doing well and is in no acute distress. Patient symptoms have improved since he arrived to our emergency department. Repeat vital signs were all reviewed and noted to be stable. Differential diagnosis and treatment plan were discussed with the patient at bedside. Patient agrees with discussion and after shared medical decision making agrees with admission. All questions were answered to the patient's satisfaction. Case was discussed with the on-call hospitalist Dr. Santana at [phone] and he accepted admission. From a consultation with orthopedics with Dr. Ungata was placed. We did attempt multiple times to reach him as he is listed as the on- call orthopedic surgeon and inform him of the consult and we were unsuccessful of reaching him overnight after multiple attempts were made to contact him. Lab Data 06/26/24 20:25 06/26/24 20:25 Labs: Lab Results 06/26/24 06/26/24 Range/Units 20:25 22:09 WBC 8.9 (4.5-10.0) K/mm3 RBC 4.69 (4.6-6.20) M/mm3 Hgb 13.7 L (14.0-18.0) g/dL Hct 41.3 L (42.0-52.0) % MCV 88.1 (80-100) fl MCH 29.2 (26-34) pg MCHC 33.2 (32-36) g/dl RDW 13.6 (11.5-14.5) % Plt Count 202 (150-375) k/mm3 MPV 10.2 (7.4-10.4) fl Immature Gran % (Auto) 0.2 (0-0.5) % Neut % (Auto) 65.5 (45.5-73.1) % Lymph % (Auto) 20.9 (18.3-44.2) % Wayne % (Auto) 9.1 H (2.6-8.5) % Eos % (Auto) 3.7 (0-4.4) % Baso % (Auto) 0.6 (0.2-1.2) % Lymph # (Auto) 1.86 (0.9-3.2) K/mm3 Wayne # (Auto) 0.8 H (0.1-0.6) K/mm3 Eos # (Auto) 0.3 (0-0.3) K/mm3 Baso # (Auto) 0.1 (0.0-0.1) K/mm3 Abs Immat Gran (auto) 0.02 (0.00-0.031) K/mm3 Absolute Neuts (auto) 5.9 (1.3-6.7) K/mm3 Absolute Nucleated RBC 0.000 (0.0-0.012) K/mm3 Nucleated RBC % 0.0 (0.0-0.2) % ESR 35 H (0-20) mm/hr Sodium 137 (137-145) mmol/L Potassium 4.2 (3.4-5.0) mmol/L Chloride 100 (98-107) mmol/L Carbon Dioxide 27 (22-30) mmol/L Anion Gap 10 (4-12) mmol/L BUN 19 (9-20) mg/dL Creatinine 1.13 (0.7-1.3) mg/dL Estim Creat Clear Calc 78 ml/min Estimated GFR > 60 (59 - ) Glucose 105 (65-110) mg/dL Calcium 8.7 (8.4-10.2) mg/dL Magnesium 2.1 (1.6-2.3) mg/dL Total Bilirubin 0.7 (0.2-1.3) mg/dL AST 21 (17-59) U/L ALT 28 (6-50) U/L Alkaline Phosphatase 61 (38-126) U/L C-Reactive Protein 5.8 H (<1.0) mg/dL Total Protein 7.0 (6.3-8.2) g/dL Albumin 3.8 (3.5-5.1) g/dL Synovial Source Rt knee syn fluid Synovial Color Yellow (Colorless) Synovial Appearance Turbid A (Clear) Synovial RBC 3000 H (0-0) /uL Synovial Nuc Cells 55331 H (0-200) /uL Synovial Neutrophils 91 H (0-25) % Synovial Lymphocytes 2 % Synovial Monocytes 3 % Synovial Macrophages 4 % Synovial Crystals Few cppd (None Seen) Synovial Glucose Pending Synovial Total Protein Pending Discharge Plan Discharge Clinical Impression: Septic arthritis Patient Disposition: Still a Patient Condition: Improved Patient Language: Mosotho Prescriptions: No Action hydrochlorothiazide 25 mg tablet 25 mg PO DAILY Qty: 90 3RF lisinopril 30 mg tablet 30 mg PO DAILY Qty: 30 2RF (DME) OneTouch Verio test strips Strip See Rx Instructions .Route Qty: 100 3RF Rx Instructions: test qam fasting (DME) blood-glucose meter [OneTouch Verio Flex meter] Misc See Rx Instructions .Route Qty: 1 0RF Rx Instructions: test qam fasting (DME) lancing device with lancets [OneTouch Delica Plus Lanc Dev] Kit See Rx Instructions .Route Qty: 1 0RF Rx Instructions: test qam fasting (DME) lancets [OneTouch Delica Plus Lancet] 33 gauge misc See Rx Instructions .Route Qty: 100 3RF Rx Instructions: test qam fasting metformin 500 mg tablet extended release 24 hr 2,000 mg PO DAILY Rx Instructions: 1 po qd x 1 wk, then 2 po qd x 1 wk, then 3 po qd x 1 wk, then 4 po qd docusate sodium [Colace] 100 mg capsule 100 mg PO DAILY Qty: 30 0RF hyoscyamine sulfate 0.125 mg tablet 0.125 mg PO Q6H PRN (Reason: bladder spasms) Qty: 20 2RF ketorolac 10 mg tablet 10 mg PO Q6H 5 Days Qty: 20 0RF cephalexin 500 mg capsule 500 mg PO Q8H Qty: 9 0RF rosuvastatin 20 mg tablet See Rx Instructions .ROUTE .COMPLEX Qty: 90 2RF Dose Instruction: Take 1 tablet by mouth once daily Rx Instructions: Take 1 tablet by mouth once daily Follow-up/Referrals: Mikel Hart MD [Primary Care Provider] - Time of Disposition: 23:38
[2024-06-26] MEDS: ACETAMINOPHEN 500 MG TABLET 1000 MG PO (20:19)
[2024-06-26 20:31] LABS: Basophils Absolute Auto 0.1 K/mm3 (0.0-0.1); Basophils Percent Auto 0.6 % (0.2-1.2); Eosinophils Absolute Auto 0.3 K/mm3 (0-0.3); Eosinophils Percent Auto 3.7 % (0-4.4); Hematocrit 41.3 % (42.0-52.0); Hemoglobin 13.7 g/dL (14.0-18.0); Immature Granulocyte Absolute 0.02 K/mm3 (0.00-0.031); Immature Granulocyte Percent A 0.2 % (0-0.5); Lymphocytes Absolute Auto 1.86 K/mm3 (0.9-3.2); Lymphocytes Percent Auto 20.9 % (18.3-44.2); Mean Corpuscular HGB Conc 33.2 g/dl (32-36); Mean Corpuscular Hemoglobin 29.2 pg (26-34); Mean Corpuscular Volume 88.1 fl (80-100); Mean Platelet Volume 10.2 fl (7.4-10.4); Monocytes Absolute Auto 0.8 K/mm3 (0.1-0.6); Monocytes Percent Auto 9.1 % (2.6-8.5); Neutrophils Absolute Auto 5.9 K/mm3 (1.3-6.7); Neutrophils Percent Auto 65.5 % (45.5-73.1); Platelet Count Result 202 k/mm3 (150-375); Red Blood Count 4.69 M/mm3 (4.6-6.20); Red Cell Distribution Width 13.6 % (11.5-14.5); White Blood Count 8.9 K/mm3 (4.5-10.0)
[2024-06-26 20:43] LABS: Alanine Aminotransferase 28 U/L (6-50); Albumin Level 3.8 g/dL (3.5-5.1); Alkaline Phosphatase 61 U/L (38-126); Anion Gap 10 mmol/L (4-12); Aspartate Amino Transferase 21 U/L (17-59); Bilirubin,Total 0.7 mg/dL (0.2-1.3); Blood Urea Nitrogen 19 mg/dL (9-20); CRP 5.8 mg/dL (<1.0); Calcium 8.7 mg/dL (8.4-10.2); Carbon Dioxide 27 mmol/L (22-30); Chloride 100 mmol/L (98-107); Estimated CRCL calculation 78 ml/min; Estimated Glomerular Filt Rate > 60; Glucose 105 mg/dL (65-110); Magnesium 2.1 mg/dL (1.6-2.3); Potassium 4.2 mmol/L (3.4-5.0); Sodium 137 mmol/L (137-145)
[2024-06-26 21:10] LABS: Erythrocyte Sedimentation Rate 35 mm/hr (0-20)
--- NOTE | 2024-06-26 22:19 | PC.NURSE ---
Dr. Flores aspirated 90ml of synovial fluid off of the right knee.
[2024-06-26 22:27] LABS: Appearance Synovial Fluid Turbid (Clear); Color Synovial Fluid Yellow (Colorless); Source Synovial Fluid Rt Knee Syn Fluid
--- NOTE | 2024-06-26 22:33 | PC.NURSE ---
care and report given to Kim, RN. all questions answered.
--- NOTE | 2024-06-26 22:36 | PC.NURSE ---
Report received from SUGEY Aguilar. Assumed care of patient at this time.
[2024-06-26 23:01] LABS: Lymphocytes Synovial Fluid 2 %; Macrophages Synovial Fluid 4 %; Monocytes Synovial Fluid 3 %; Neutrophils Synovial Fluid 91 % (0-25); Nucleated Cell Synovial Fluid 35330 /uL (0-200); RBC Synovial Fluid 3000 /uL (0-0)
[2024-06-26 23:02] LABS: Crystals Synovial Fluid Few Cppd (None Seen)
[2024-06-26] MEDS: cefTRIAXone 2 GM/NS 100 ML 2 GM/100 ML BAG IVPB (23:35)
[2024-06-27] VITALS (17 sets, daily range): BP systolic 122–143; BP diastolic 70–98; PULSE 67–85; RESP 14–25; TEMP 36.3–37.1; O2SAT 94–98; BMI 33.9
[2024-06-27] MEDS: VANCOMYCIN 1,250 MG/NS 250 ML 1,250 MG/250 ML BAG 166.67 MG IVPB ×2 (00:06→02:07)
--- NOTE | 2024-06-27 01:24 | ADMGEN ---
This patient, Dominic Palumbo, was admitted to Medical Room 243-. Patient/family oriented to hospital policies and general routines including ID bracelet, bed and alarms, visiting hours, pain management, procedures, bathroom and other care routines, personal items, smoking policy, room service/diet, and visiting hours. Information on how to activate the Rapid Response Team has been discussed. Patient/Family are encouraged to report perceived risks to care and to ask questions if they do not understand what they are told or what they should do.
--- NOTE | 2024-06-27 02:01 | PM.IMHP ---
H&P: HPI History of Present Illness Date/Time: 06/27/24 02:01 Chief Complaint: Right knee pain Narrative: 59-year-old male presents with sudden onset of right swollen knee and pain upon waking up on day of admission on 06/26/2024. Recently had prostate removed on June 23 and has a Morrow catheter placed. His last steroid injection in the right knee was at least a few years ago. He previously had a right knee joint effusion which required fluid removal was told it was not infected. Patient reports temperature 99.4? at home. ER evaluation demonstrated a large swollen right knee joint an elevated CRP of 5.8. Right knee arthrocentesis was perform revealing a cloudy yellow synovial fluid. Analysis demonstrated turbid fluid with 3000 RBCs, 35 K nucleated cells, 91% neutrophils. Patient was given vancomycin and Rocephin and orthopedic surgery was consulted. Review of Systems Review of Systems: All systems reviewed & are unremarkable except as noted in HPI and below (HPI) PMFSH Past Medical History Medical History Prostate cancer Arthritis of ankle, left, degenerative Left ankle instability Ankle pain, left Carpal tunnel syndrome High prostate specific antigen (PSA) Obesity Spinal stenosis, lumbar Degenerative disc disease, lumbar Osteoarthritis of knees, bilateral Surgical History Surgical History H/O cervical spinal arthrodesis H/O spinal fusion L4-5 Family History Family History Father Hypertension Family history of coronary artery disease Social History Social History Social History: Smoking status: Never smoker Second hand tobacco smoke exposure: No Alcohol intake: never Drinks per week: 1 Alcohol use details: Occasionally Substance use: never Substance use type: does not use Do You Feel Safe in your Home?: Yes Lack of Transportation: No Lack of Food: Never True Current Housing: I Have Housing Concerned About Future Housing: No Difficulty Paying Gas/Electric Bills: No Difficulty Paying for Meds: No Currently Unemployed: No Education: Bachelor's Degree Difficulty w/ Childcare or Family Care: No Living arrangements: with family Additional living arrangements comments: Occupation/Education: occupation 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 Gender identity (if verbalized by the patient): Male Sexual Orientation (if Verbalized by the Patient): Straight or Heterosexual Spiritual care concerns: No Meds Home Medications and Allergies Home Medications ?Medication ?Instructions ?Recorded ?Confirmed ?Type rosuvastatin 20 mg tablet See Rx Instructions .Route 04/19/24 06/23/24 Rx .COMPLEX #90 tabs blood sugar diagnostic (OneTouch #100 ea 05/23/24 06/15/24 Rx Verio test strips) blood-glucose meter (OneTouch #1 ea 05/23/24 06/15/24 Rx Verio Flex Meter) hydrochlorothiazide 25 mg tablet 25 mg PO DAILY #90 tabs 05/23/24 06/23/24 Rx lancets 33 gauge ([employer]Touch Delica #100 ea 05/23/24 06/15/24 Rx Plus Lancet) lancing device with lancets kit #1 ea 05/23/24 06/15/24 Rx ([employer]Touch Delica Plus Lancing Device kit) lisinopril 30 mg tablet 30 mg PO DAILY #30 tabs 05/23/24 06/23/24 Rx metformin 500 mg tablet,extended 2,000 mg PO DAILY 06/15/24 06/23/24 History release 24 hr cephalexin 500 mg capsule 500 mg PO Q8H #9 caps 06/24/24 06/27/24 Rx docusate sodium 100 mg capsule 100 mg PO DAILY #30 caps 06/24/24 06/27/24 Rx (Colace) hyoscyamine sulfate 0.125 mg tablet 0.125 mg PO Q6H PRN bladder spasms 06/24/24 Rx #20 tabs ketorolac 10 mg tablet 10 mg PO Q6H 5 days #20 tabs 06/24/24 Rx Allergies Allergy/AdvReac Type Severity Reaction Status Date / Time No Known Allergies Allergy Verified 06/23/24 14:15 Vital Signs Vital Signs - 24 hr 06/26/24 18:19 06/26/24 20:23 06/26/24 20:45 Temperature 97.5 F L Pulse Rate 94 97 78 Respiratory Rate 16 26 H 26 H Blood Pressure 121/71 133/78 139/87 Pulse Oximetry 97 96 99 Oxygen Delivery 06/26/24 20:48 06/26/24 21:01 06/26/24 21:31 Temperature Pulse Rate 79 79 78 Respiratory Rate 26 H 28 H 21 H Blood Pressure 145/86 H 134/83 Pulse Oximetry 95 95 98 Oxygen Delivery 06/26/24 22:01 06/26/24 22:30 06/26/24 22:31 Temperature Pulse Rate 69 71 73 Respiratory Rate 24 H 23 H 16 Blood Pressure 146/90 H 140/83 Pulse Oximetry 95 96 Oxygen Delivery 06/26/24 22:45 06/26/24 23:00 06/26/24 23:01 Temperature Pulse Rate 73 70 74 Respiratory Rate 24 H 22 H 19 Blood Pressure 139/90 Pulse Oximetry 97 96 94 Oxygen Delivery 06/26/24 23:15 06/26/24 23:20 06/26/24 23:30 Temperature Pulse Rate 67 70 74 Respiratory Rate 22 H 20 21 H Blood Pressure 139/90 Pulse Oximetry 94 94 95 Oxygen Delivery 06/26/24 23:31 06/26/24 23:45 06/27/24 00:00 Temperature Pulse Rate 82 72 71 Respiratory Rate 19 20 21 H Blood Pressure 113/77 Pulse Oximetry 96 95 95 Oxygen Delivery 06/27/24 00:01 06/27/24 00:15 06/27/24 00:19 Temperature Pulse Rate 85 77 77 Respiratory Rate 17 25 H 19 Blood Pressure 143/86 H 143/86 H Pulse Oximetry 95 95 95 Oxygen Delivery 06/27/24 00:30 06/27/24 00:31 06/27/24 00:45 Temperature Pulse Rate 70 72 72 Respiratory Rate 21 H 21 H 19 Blood Pressure 138/84 Pulse Oximetry 95 95 95 Oxygen Delivery 06/27/24 01:00 06/27/24 01:01 06/27/24 01:12 Temperature Pulse Rate 75 79 77 Respiratory Rate 22 H 19 20 Blood Pressure 129/79 129/79 Pulse Oximetry 94 96 95 Oxygen Delivery 06/27/24 01:23 06/27/24 01:55 Temperature 97.4 F L Pulse Rate 73 Respiratory Rate 18 Blood Pressure 122/98 H Pulse Oximetry 98 Oxygen Delivery Room Air Exam Const: General: comfortable and no acute distress Eyes: Pupils: Equal, round and reactive pupils present Neck: Neck: supple Resp: Effort & Inspection: normal respiratory effort Auscultation: clear to auscultation bilaterally Cardio: Rate: regular rate Rhythm: regular rhythm GI: GI Palp: Yes Soft to palpation Extrem: Other: Edematous right knee, warm to touch. No lesions or ulcers. Tender to moderate palpation. Limited range of motion due to pain. H&P: Results Labs Labs: Short CBC 06/26/24 Range/Units 20:25 WBC 8.9 (4.5-10.0) K/mm3 Hgb 13.7 L (14.0-18.0) g/dL Hct 41.3 L (42.0-52.0) % Plt Count 202 (150-375) k/mm3 BMP 06/26/24 20:25 Sodium 137 Potassium 4.2 Chloride 100 Carbon Dioxide 27 BUN 19 Creatinine 1.13 Glucose 105 Calcium 8.7 Liver Function 06/26/24 Range/Units 20:25 Total Bilirubin 0.7 (0.2-1.3) mg/dL AST 21 (17-59) U/L ALT 28 (6-50) U/L Alkaline Phosphatase 61 (38-126) U/L Albumin 3.8 (3.5-5.1) g/dL Assessment and Plan Assessment and plan (1) Septic arthritis: Code(s): M00.9 - Pyogenic arthritis, unspecified Status: Acute Plan 59-year-old male presents with sudden onset of right swollen knee and pain upon waking up on day of admission on 06/26/2024. Recently had prostate removed on June 23 and has a Morrow catheter placed. His last steroid injection in the right knee was at least a few years ago. He previously had a right knee joint effusion which required fluid removal was told it was not infected. Patient reports temperature 99.4? at home. ER evaluation demonstrated a large swollen right knee joint an elevated CRP of 5.8. Right knee arthrocentesis was perform revealing a cloudy yellow synovial fluid. Analysis demonstrated turbid fluid with 3000 RBCs, 35 K nucleated cells, 91% neutrophils. Patient was given vancomycin and Rocephin and orthopedic surgery was consulted. ----- Continue vancomycin and ceftriaxone. Pending synovial fluid culture and blood cultures. Pending orthopedic surgery consultation. Tylenol, tramadol, morphine p.r.n. for pain regimen. Full code. Hospitalist MIPS Advance Care Plan I have confirmed that the patient's Advanced Care Plan is present, code status is documented, or surrogate decision maker is listed in patient medical record.: Yes Medication Reconciliation I have utilized all available resources to obtain, update and review the patients current medications (includes all prescriptions, OTC, herbals, cannabis, and nutritional supplements).: Yes
[2024-06-27 02:16] LABS: Estimated CRCL calculation 100 ml/min; Estimated Glomerular Filt Rate > 60
[2024-06-27 07:44] LABS: Glucose Point of Care 112 mg/dl (65-105)
[2024-06-27] MEDS: traMADol HCL (*CRX) 25 MG TABLET PO (07:44)
[2024-06-27] MEDS: DOCUSATE SODIUM 100 MG CAPSULE PO (08:54)
[2024-06-27] MEDS: ROSUVASTATIN 20 MG TABLET BY MOUTH (08:55)
--- NOTE | 2024-06-27 11:17 | PM.IMPN ---
Progress Note: A&P Assessment and Plan (1) Septic arthritis: Code(s): M00.9 - Pyogenic arthritis, unspecified Status: Acute Plan [place] [address] and few CPPD Blood and synovial fluid culture pending Continue Rocephin and Vanc Ortho consulted DVT prophylaxis on Lovenox Subjective Date/time seen: 06/27/24 11:17 Interval history: Comfortable at bedside Review of Systems Review of Systems: All systems reviewed & are unremarkable except as noted in HPI and below (HPI) Exam Const: General: comfortable and no acute distress Eyes: Pupils: Equal, round and reactive pupils present Neck: Neck: supple Resp: Effort & Inspection: normal respiratory effort Auscultation: clear to auscultation bilaterally Cardio: Rate: regular rate Rhythm: regular rhythm Neuro: Cranial nerves: Yes Equal, round and reactive pupils present Extrem: Other: Edematous right knee, warm to touch. No lesions or ulcers. Tender to moderate palpation. Limited range of motion due to pain. Objective Data Vital Signs Vital Signs: Vital Signs - 24 hr 06/26/24 18:19 06/26/24 20:23 06/26/24 20:45 Temperature 97.5 F L Pulse Rate 94 97 78 Respiratory Rate 16 26 H 26 H Blood Pressure 121/71 133/78 139/87 Pulse Oximetry 97 96 99 Oxygen Delivery 06/26/24 20:48 06/26/24 21:01 06/26/24 21:31 Temperature Pulse Rate 79 79 78 Respiratory Rate 26 H 28 H 21 H Blood Pressure 145/86 H 134/83 Pulse Oximetry 95 95 98 Oxygen Delivery 06/26/24 22:01 06/26/24 22:30 06/26/24 22:31 Temperature Pulse Rate 69 71 73 Respiratory Rate 24 H 23 H 16 Blood Pressure 146/90 H 140/83 Pulse Oximetry 95 96 Oxygen Delivery 06/26/24 22:45 06/26/24 23:00 06/26/24 23:01 Temperature Pulse Rate 73 70 74 Respiratory Rate 24 H 22 H 19 Blood Pressure 139/90 Pulse Oximetry 97 96 94 Oxygen Delivery 06/26/24 23:15 06/26/24 23:20 06/26/24 23:30 Temperature Pulse Rate 67 70 74 Respiratory Rate 22 H 20 21 H Blood Pressure 139/90 Pulse Oximetry 94 94 95 Oxygen Delivery 06/26/24 23:31 06/26/24 23:45 06/27/24 00:00 Temperature Pulse Rate 82 72 71 Respiratory Rate 19 20 21 H Blood Pressure 113/77 Pulse Oximetry 96 95 95 Oxygen Delivery 06/27/24 00:01 06/27/24 00:15 06/27/24 00:19 Temperature Pulse Rate 85 77 77 Respiratory Rate 17 25 H 19 Blood Pressure 143/86 H 143/86 H Pulse Oximetry 95 95 95 Oxygen Delivery 06/27/24 00:30 06/27/24 00:31 06/27/24 00:45 Temperature Pulse Rate 70 72 72 Respiratory Rate 21 H 21 H 19 Blood Pressure 138/84 Pulse Oximetry 95 95 95 Oxygen Delivery 06/27/24 01:00 06/27/24 01:01 06/27/24 01:12 Temperature Pulse Rate 75 79 77 Respiratory Rate 22 H 19 20 Blood Pressure 129/79 129/79 Pulse Oximetry 94 96 95 Oxygen Delivery 06/27/24 01:23 06/27/24 01:55 06/27/24 04:00 Temperature 97.4 F L 97.5 F L Pulse Rate 73 67 Respiratory Rate 18 16 Blood Pressure 122/98 H 129/72 Pulse Oximetry 98 94 Oxygen Delivery Room Air 06/27/24 08:00 06/27/24 08:54 06/27/24 09:06 Temperature Pulse Rate 77 Respiratory Rate 14 Blood Pressure 136/70 Pulse Oximetry 95 95 Oxygen Delivery Room Air Room Air Intake/Output Intake/Output: Intake & Output 06/24/24 06/25/24 06/26/24 06/27/24 23:59 23:59 23:59 23:59 Intake Total 220 Output Total 800 Balance -580 Meds/Results Medications: Active Medications Generic Name Dose Route Start Last Admin Trade Name Freq PRN Reason Stop Dose Admin Acetaminophen 650 mg 06/27/24 02:00 Acetaminophen 325 Mg Tablet PO Q4H PRN Mild Pain (1-3) or Fever Dextrose 12.5 gm 06/27/24 02:00 Dextrose 50% 25 Gm/50 Ml Syringe IV PUSH PRN PRN Hypoglycemia Protocol Docusate Sodium 100 mg 06/27/24 09:00 06/27/24 08:54 Docusate Sodium 100 Mg Capsule PO 100 mg DAILY SHAZIA Administration Glucose 15 gm 06/27/24 02:00 Glucose Oral Gel 15 Gm Of Glucse In 37.5 Gm Tube PO PRN PRN Hypoglycemia Protocol Hyoscyamine 0.125 mg 06/27/24 04:58 Hyoscyamine Sulfate 0.125 Mg Tablet PO Q6H PRN bladder spasms Ceftriaxone Sodium 2 gm in 100 mls @ 200 mls/hr 06/27/24 23:00 Rocephin 2 Gm/Ns 100 Ml IVPB Q24H SHAZIA Dextrose 1,000 mls @ 100 mls/hr 06/27/24 02:00 Dextrose 5% 1,000 Ml IVPB PRN PRN Hypoglycemia Protocol Vancomycin HCl 1,500 mg in 500 mls @ 250 mls/hr 06/27/24 13:00 Vancomycin 1,500 Mg/Ns 500 Ml IVPB Q12H SHAZIA Insulin Aspart 2 - 5 units 06/27/24 08:00 06/27/24 08:52 Insulin Aspart (*Bkc) 100 Units/Ml SUB-Q Not Given TIDWM SHAZIA Protocol Insulin Aspart 1 - 2 units 06/27/24 21:00 Insulin Aspart (*Bkc) 100 Units/Ml SUB-Q HS [facility] Protocol Morphine Sulfate 2 mg 06/27/24 02:00 Morphine Sulfate (*Crx) 2 Mg/Ml Inj IV PUSH Q4H PRN Pain Rated 7-10 Rosuvastatin Calcium 20 mg 06/27/24 09:00 06/27/24 08:55 Rosuvastatin 20 Mg Tablet BY MOUTH 20 mg DAILY SHAZIA Administration Tramadol HCl 25 mg 06/27/24 02:00 06/27/24 07:44 Tramadol Hcl (*Crx) 25 Mg Tablet PO 25 mg Q4H PRN Administration Pain Rated 4-6 Radiology Results: ITS Impressions Knee X-Ray 06/26/24 20:36 IMPRESSION: No acute fracture or dislocation. Large right knee joint effusion. Labs Labs: Laboratory Results - last 24 hr 06/26/24 06/26/24 06/27/24 20:25 22:09 02:00 WBC 8.9 RBC 4.69 Hgb 13.7 L Hct 41.3 L MCV 88.1 MCH 29.2 MCHC 33.2 RDW 13.6 Plt Count 202 MPV 10.2 Immature Gran % (Auto) 0.2 Neut % (Auto) 65.5 Lymph % (Auto) 20.9 [place] % (Auto) 9.1 H Eos % (Auto) 3.7 Baso % (Auto) 0.6 Lymph # (Auto) 1.86 [place] # (Auto) 0.8 H Eos # (Auto) 0.3 Baso # (Auto) 0.1 Abs Immat Gran (auto) 0.02 Absolute Neuts (auto) 5.9 Absolute Nucleated RBC 0.000 Nucleated RBC % 0.0 ESR 35 H Sodium 137 Potassium 4.2 Chloride 100 Carbon Dioxide 27 Anion Gap 10 BUN 19 Creatinine 1.13 0.86 Estim Creat Clear Calc 78 100 Estimated GFR > 60 > 60 Glucose 105 POC Capillary Glucose Calcium 8.7 Magnesium 2.1 Total Bilirubin 0.7 AST 21 ALT 28 Alkaline Phosphatase 61 C-Reactive Protein 5.8 H Total Protein 7.0 Albumin 3.8 Synovial Source Rt knee syn fluid Synovial Color Yellow Synovial Appearance Turbid A Synovial RBC 3000 H Synovial Nuc Cells 28570 H Synovial Neutrophils 91 H Synovial Lymphocytes 2 Synovial Monocytes 3 Synovial Macrophages 4 Synovial Crystals Few cppd 06/27/24 07:41 WBC RBC Hgb Hct MCV MCH MCHC RDW Plt Count MPV Immature Gran % (Auto) Neut % (Auto) Lymph % (Auto) [place] % (Auto) Eos % (Auto) Baso % (Auto) Lymph # (Auto) [place] # (Auto) Eos # (Auto) Baso # (Auto) Abs Immat Gran (auto) Absolute Neuts (auto) Absolute Nucleated RBC Nucleated RBC % ESR Sodium Potassium Chloride Carbon Dioxide Anion Gap BUN Creatinine Estim Creat Clear Calc Estimated GFR Glucose POC Capillary Glucose 112 H Calcium Magnesium Total Bilirubin AST ALT Alkaline Phosphatase C-Reactive Protein Total Protein Albumin Synovial Source Synovial Color Synovial Appearance Synovial RBC Synovial Nuc Cells Synovial Neutrophils Synovial Lymphocytes Synovial Monocytes Synovial Macrophages Synovial Crystals
[2024-06-27 11:47] LABS: Glucose Point of Care 128 mg/dl (65-105)
[2024-06-27] MEDS: ACETAMINOPHEN 325 MG TABLET 650 MG PO ×2 (11:53→17:32)
[2024-06-27] MEDS: VANCOMYCIN 1,500 MG/NS 500 ML 1,500 MG/500 ML BAG 250 MG IVPB (13:03)
--- NOTE | 2024-06-27 13:56 | PM.CNOR ---
Assessment and Plan Assessment and plan (1) Pseudogout of knee: Code(s): M11.269 - Other chondrocalcinosis, unspecified knee Status: Acute Assessment and Plan: 59 yr old male with Right Knee Pseudogout (CPPD crystals in aspirate from ER) -recommend Right Knee Aspiration with intra-articular kenalog injection Plan 59 yr old male with Right Knee Pseudogout (CPPD crystals in aspirate from ER) -recommend Right Knee Aspiration with intra-articular kenalog injection History of Present Illness HPI Consult date: 06/27/24 Chief complaint: Right knee effusion, concern for septic arthritis Narrative: Patient is a 59-year-old male presented to emergency room with acute onset right knee pain and swelling started on Thursday morning trauma associated with this knee swelling. The patient is recently postop from a prostatectomy and currently has catheter in place His is on postop oral antibiotics. In the ER, 90cc was aspirated from his Right knee. 35,000 WBC in aspirate. (+) CPPD Crystals (pseudogout). History of knee arthritis with most recent intra-articular injection performed more than 2 yrs ago. Review of Systems Review of Systems: All systems reviewed & are unremarkable except as noted in HPI and below Constitutional: Constitutional: Reports as per HPI PMFSH Past Medical History Medical History Prostate cancer Arthritis of ankle, left, degenerative Left ankle instability Ankle pain, left Carpal tunnel syndrome High prostate specific antigen (PSA) Obesity Spinal stenosis, lumbar Degenerative disc disease, lumbar Osteoarthritis of knees, bilateral Surgical History Surgical History History of radical prostatectomy robotic H/O cervical spinal arthrodesis H/O spinal fusion L4-5 Family History Family History Father Hypertension Family history of coronary artery disease Social History Social History Social History: Smoking status: Never smoker Second hand tobacco smoke exposure: No Alcohol intake: never Drinks per week: 1 Alcohol use details: Occasionally Substance use: never Substance use type: does not use Do You Feel Safe in your Home?: Yes Lack of Transportation: No Lack of Food: Never True Current Housing: I Have Housing Concerned About Future Housing: No Difficulty Paying Gas/Electric Bills: No Difficulty Paying for Meds: No Currently Unemployed: No Education: Bachelor's Degree Difficulty w/ Childcare or Family Care: No Living arrangements: with family Additional living arrangements comments: Occupation/Education: occupation 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 Gender identity (if verbalized by the patient): Male Sexual Orientation (if Verbalized by the Patient): Straight or Heterosexual Spiritual care concerns: No Meds Home Medications and Allergies Home Medications ?Medication ?Instructions ?Recorded ?Confirmed ?Type rosuvastatin 20 mg tablet See Rx Instructions .Route 04/19/24 06/27/24 Rx .COMPLEX #90 tabs blood sugar diagnostic (OneTouch #100 ea 05/23/24 06/27/24 Rx Verio test strips) blood-glucose meter (OneTouch #1 ea 05/23/24 06/27/24 Rx Verio Flex Meter) hydrochlorothiazide 25 mg tablet 25 mg PO DAILY #90 tabs 05/23/24 06/27/24 Rx lancets 33 gauge (OneTouch Delica #100 ea 05/23/24 06/27/24 Rx Plus Lancet) lancing device with lancets kit #1 ea 05/23/24 06/27/24 Rx ([employer] Bioscience[employer] Delica Plus Lancing Device kit) lisinopril 30 mg tablet 30 mg PO DAILY #30 tabs 05/23/24 06/27/24 Rx metformin 500 mg tablet,extended 2,000 mg PO DAILY 06/15/24 06/27/24 History release 24 hr cephalexin 500 mg capsule 500 mg PO Q8H #9 caps 06/24/24 06/27/24 Rx docusate sodium 100 mg capsule 100 mg PO DAILY #30 caps 06/24/24 06/27/24 Rx (Colace) hyoscyamine sulfate 0.125 mg tablet 0.125 mg PO Q6H PRN bladder spasms 06/24/24 06/27/24 Rx #20 tabs ketorolac 10 mg tablet 10 mg PO Q6H 5 days #20 tabs 06/24/24 06/27/24 Rx Allergies Allergy/AdvReac Type Severity Reaction Status Date / Time No Known Allergies Allergy Verified 06/23/24 14:15 Vital Signs Vital Signs - 24 hr 06/26/24 18:19 06/26/24 20:23 06/26/24 20:45 Temperature 36.4 C L Pulse Rate 94 97 78 Respiratory Rate 16 26 H 26 H Blood Pressure 121/71 133/78 139/87 Pulse Oximetry 97 96 99 Oxygen Delivery 06/26/24 20:48 06/26/24 21:01 06/26/24 21:31 Temperature Pulse Rate 79 79 78 Respiratory Rate 26 H 28 H 21 H Blood Pressure 145/86 H 134/83 Pulse Oximetry 95 95 98 Oxygen Delivery 06/26/24 22:01 06/26/24 22:30 06/26/24 22:31 Temperature Pulse Rate 69 71 73 Respiratory Rate 24 H 23 H 16 Blood Pressure 146/90 H 140/83 Pulse Oximetry 95 96 Oxygen Delivery 06/26/24 22:45 06/26/24 23:00 06/26/24 23:01 Temperature Pulse Rate 73 70 74 Respiratory Rate 24 H 22 H 19 Blood Pressure 139/90 Pulse Oximetry 97 96 94 Oxygen Delivery 06/26/24 23:15 06/26/24 23:20 06/26/24 23:30 Temperature Pulse Rate 67 70 74 Respiratory Rate 22 H 20 21 H Blood Pressure 139/90 Pulse Oximetry 94 94 95 Oxygen Delivery 06/26/24 23:31 06/26/24 23:45 06/27/24 00:00 Temperature Pulse Rate 82 72 71 Respiratory Rate 19 20 21 H Blood Pressure 113/77 Pulse Oximetry 96 95 95 Oxygen Delivery 06/27/24 00:01 06/27/24 00:15 06/27/24 00:19 Temperature Pulse Rate 85 77 77 Respiratory Rate 17 25 H 19 Blood Pressure 143/86 H 143/86 H Pulse Oximetry 95 95 95 Oxygen Delivery 06/27/24 00:30 06/27/24 00:31 06/27/24 00:45 Temperature Pulse Rate 70 72 72 Respiratory Rate 21 H 21 H 19 Blood Pressure 138/84 Pulse Oximetry 95 95 95 Oxygen Delivery 06/27/24 01:00 06/27/24 01:01 06/27/24 01:12 Temperature Pulse Rate 75 79 77 Respiratory Rate 22 H 19 20 Blood Pressure 129/79 129/79 Pulse Oximetry 94 96 95 Oxygen Delivery 06/27/24 01:23 06/27/24 01:55 06/27/24 04:00 Temperature 36.3 C L 36.4 C L Pulse Rate 73 67 Respiratory Rate 18 16 Blood Pressure 122/98 H 129/72 Pulse Oximetry 98 94 Oxygen Delivery Room Air 06/27/24 08:00 06/27/24 08:54 06/27/24 09:06 Temperature Pulse Rate 77 Respiratory Rate 14 Blood Pressure 136/70 Pulse Oximetry 95 95 Oxygen Delivery Room Air Room Air 06/27/24 12:00 Temperature Pulse Rate 73 Respiratory Rate 18 Blood Pressure 132/73 Pulse Oximetry 95 Oxygen Delivery Exam Narrative: Exam of the Right Knee shows significant effusion with no erythema, mod tenderness over the medial and lateral joint line. - no pain with passive range of motion of the Right Knee. - no warmth - decrease range of motion due to effusion. Const: General: cooperative, healthy appearing, comfortable, no acute distress, alert and awake Nutritional Appearance: average body habitus and well nourished Orientation/consciousness: oriented to person, oriented to place and oriented to time Results Labs 06/26/24 20:25 06/27/24 02:00 Labs: Abnormal lab results 06/26/24 06/26/24 06/27/24 Range/Units 20:25 22:09 07:41 Hgb 13.7 L (14.0-18.0) g/dL Hct 41.3 L (42.0-52.0) % [place] % (Auto) 9.1 H (2.6-8.5) % [place] # (Auto) 0.8 H (0.1-0.6) K/mm3 ESR 35 H (0-20) mm/hr POC Capillary Glucose 112 H (65-105) mg/dl C-Reactive Protein 5.8 H (<1.0) mg/dL Synovial Appearance Turbid A (Clear) Synovial RBC 3000 H (0-0) /uL Synovial Nuc Cells 12492 H (0-200) /uL Synovial Neutrophils 91 H (0-25) % 06/27/24 Range/Units 11:41 Hgb (14.0-18.0) g/dL Hct (42.0-52.0) % [place] % (Auto) (2.6-8.5) % [place] # (Auto) (0.1-0.6) K/mm3 ESR (0-20) mm/hr POC Capillary Glucose 128 H (65-105) mg/dl C-Reactive Protein (<1.0) mg/dL Synovial Appearance (Clear) Synovial RBC (0-0) /uL Synovial Nuc Cells (0-200) /uL Synovial Neutrophils (0-25) % H & H 04/20/25 Range/Units 20:25 Hgb 13.7 L (14.0-18.0) g/dL Hct 41.3 L (42.0-52.0) % All other labs normal.
[2024-06-27 16:56] LABS: Glucose Point of Care 99 mg/dl (65-105)
[2024-06-27 21:55] LABS: Glucose Point of Care 136 mg/dl (65-105)
[2024-06-28] VITALS: BP 135/72; PULSE 73; RESP 20; TEMP 37.3; O2SAT 90
[2024-06-28] MEDS: VANCOMYCIN 1,500 MG/NS 500 ML 1,500 MG/500 ML BAG 250 MG IVPB
[2024-06-28] MEDS: cefTRIAXone 2 GM/NS 100 ML 2 GM/100 ML BAG IVPB (02:09)
[2024-06-28 04:00] VITALS: BP 116/76; PULSE 73; RESP 18; TEMP 36.8; O2SAT 93
[2024-06-28 05:26] LABS: Basophils Percent Auto 0.1 % (0.2-1.2); Eosinophils Percent Auto 0.6 % (0-4.4); Hematocrit 37.2 % (42.0-52.0); Hemoglobin 12.6 g/dL (14.0-18.0); Immature Granulocyte Absolute 0.02 K/mm3 (0.00-0.031); Immature Granulocyte Percent A 0.3 % (0-0.5); Lymphocytes Absolute Auto 0.48 K/mm3 (0.9-3.2); Lymphocytes Percent Auto 6.8 % (18.3-44.2); Mean Corpuscular HGB Conc 33.9 g/dl (32-36); Mean Corpuscular Hemoglobin 29.2 pg (26-34); Mean Corpuscular Volume 86.3 fl (80-100); Mean Platelet Volume 10.1 fl (7.4-10.4); Monocytes Absolute Auto 0.2 K/mm3 (0.1-0.6); Monocytes Percent Auto 3.3 % (2.6-8.5); Neutrophils Absolute Auto 6.3 K/mm3 (1.3-6.7); Neutrophils Percent Auto 88.9 % (45.5-73.1); Platelet Count Result 201 k/mm3 (150-375); Red Blood Count 4.31 M/mm3 (4.6-6.20); Red Cell Distribution Width 13.2 % (11.5-14.5); White Blood Count 7.1 K/mm3 (4.5-10.0)
[2024-06-28 05:36] LABS: Alanine Aminotransferase 21 U/L (6-50); Albumin Level 3.6 g/dL (3.5-5.1); Alkaline Phosphatase 60 U/L (38-126); Anion Gap 8 mmol/L (4-12); Aspartate Amino Transferase 17 U/L (17-59); Bilirubin,Total 0.8 mg/dL (0.2-1.3); Blood Urea Nitrogen 13 mg/dL (9-20); Calcium 8.6 mg/dL (8.4-10.2); Carbon Dioxide 23 mmol/L (22-30); Chloride 103 mmol/L (98-107); Estimated CRCL calculation 103 ml/min; Estimated Glomerular Filt Rate > 60; Glucose 159 mg/dL (65-110); Magnesium 2.2 mg/dL (1.6-2.3); Potassium 4.3 mmol/L (3.4-5.0); Sodium 134 mmol/L (137-145)
[2024-06-28 08:00] VITALS: BP 120/68; PULSE 74; RESP 18; TEMP 37.1; O2SAT 96
[2024-06-28] MEDS: ENOXAPARIN 40 MG/0.4 ML SYRINGE SUB-Q (08:02)
[2024-06-28] MEDS: ROSUVASTATIN 20 MG TABLET BY MOUTH (08:02)
[2024-06-28] MEDS: DOCUSATE SODIUM 100 MG CAPSULE PO (08:02)
[2024-06-28 08:20] LABS: Glucose Point of Care 156 mg/dl (65-105)
--- NOTE | 2024-06-28 08:55 | P.PNIM_ITS ---
Progress Note: A&P Assessment and Plan (1) Septic arthritis: Code(s): M00.9 - Pyogenic arthritis, unspecified Status: Acute Plan [place] [address] and few CPPD Blood and synovial fluid culture pending Continue Rocephin and Vanc Ortho consulted Rt LE US: IMPRESSION: 1. No deep venous thrombosis in the right lower limb. 2. Moderate-sized right knee joint effusion and moderate-sized Taylor's cyst. Rt Knee Xray: No acute fracture or dislocation. Large right knee joint effusion. DVT prophylaxis on Lovenox Subjective Date/time seen: 06/28/24 08:55 Interval history: Interval history: 59-year-old male presented to emergency room with acute onset right knee pain and swelling started on Thursday morning trauma associated with this knee swelling. The patient is recently postop from a prostatectomy and currently has catheter in place His is on postop oral antibiotics. In the ER, 90cc was aspirated from his Right knee. 35,000 WBC in aspirate. (+) CPPD Crystals (pseudogout). History of knee arthritis with most recent intra-eden cular injection performed more than 2 yrs ago. Review of Systems Review of Systems: All systems reviewed & are unremarkable except as noted in HPI and below (HPI) Exam Const: General: comfortable and no acute distress Eyes: Pupils: Equal, round and reactive pupils present Neck: Neck: supple Resp: Effort & Inspection: normal respiratory effort Auscultation: clear to auscultation bilaterally Cardio: Rate: regular rate Rhythm: regular rhythm Neuro: Cranial nerves: Yes Equal, round and reactive pupils present Extrem: Other: Edematous right knee, warm to touch. No lesions or ulcers. Tender to moderate palpation. Limited range of motion due to pain. Objective Data Vital Signs Vital Signs: Vital Signs - 24 hr 06/27/24 09:06 06/27/24 12:00 06/27/24 16:00 Temperature Pulse Rate 73 72 Respiratory Rate 18 18 Blood Pressure 132/73 135/73 Pulse Oximetry 95 95 95 Oxygen Delivery Room Air 06/27/24 20:00 06/27/24 20:00 06/28/24 00:00 Temperature 98.7 F 99.1 F Pulse Rate 76 73 Respiratory Rate 20 20 Blood Pressure 128/82 135/72 Pulse Oximetry 96 90 Oxygen Delivery Room Air 06/28/24 04:00 Temperature 98.3 F Pulse Rate 73 Respiratory Rate 18 Blood Pressure 116/76 Pulse Oximetry 93 Oxygen Delivery Intake/Output Intake/Output: Intake & Output 06/25/24 06/26/24 06/27/24 06/28/24 23:59 23:59 23:59 23:59 Intake Total 2060 990 Output Total 2450 1600 Balance -390 -610 Meds/Results Medications: Active Medications Generic Name Dose Route Start Last Admin Trade Name Freq PRN Reason Stop Dose Admin Acetaminophen 650 mg 06/27/24 02:00 06/27/24 17:32 Acetaminophen 325 Mg Tablet PO 650 mg Q4H PRN Administration Mild Pain (1-3) or Fever Dextrose 12.5 gm 06/27/24 02:00 Dextrose 50% 25 Gm/50 Ml Syringe IV PUSH PRN PRN Hypoglycemia Protocol Docusate Sodium 100 mg 06/27/24 09:00 06/28/24 08:02 Docusate Sodium 100 Mg Capsule PO 100 mg DAILY SHAZIA Administration Enoxaparin Sodium 40 mg 06/28/24 09:00 06/28/24 08:02 Enoxaparin 40 Mg/0.4 Ml Syringe SUB-Q 40 mg DAILY SHAZIA Administration Glucose 15 gm 06/27/24 02:00 Glucose Oral Gel 15 Gm Of Glucse In 37.5 Gm Tube PO PRN PRN Hypoglycemia Protocol Hyoscyamine 0.125 mg 06/27/24 04:58 Hyoscyamine Sulfate 0.125 Mg Tablet PO Q6H PRN bladder spasms Ceftriaxone Sodium 2 gm in 100 mls @ 200 mls/hr 06/27/24 23:00 06/28/24 02:44 Rocephin 2 Gm/Ns 100 Ml IVPB Infused Q24H SHAZIA Infusion Dextrose 1,000 mls @ 100 mls/hr 06/27/24 02:00 Dextrose 5% 1,000 Ml IVPB PRN PRN Hypoglycemia Protocol Vancomycin HCl 1,500 mg in 500 mls @ 250 mls/hr 06/27/24 13:00 06/28/24 02:12 Vancomycin 1,500 Mg/Ns 500 Ml IVPB Infused Q12H SHAZIA Infusion Insulin Aspart 2 - 5 units 06/27/24 08:00 06/27/24 17:35 Insulin Aspart (*Bkc) 100 Units/Ml SUB-Q Not Given TIDWM SHAZIA Protocol Insulin Aspart 1 - 2 units 06/27/24 21:00 06/27/24 21:00 Insulin Aspart (*Bkc) 100 Units/Ml SUB-Q Not Given HS [facility] Protocol Morphine Sulfate 2 mg 06/27/24 02:00 Morphine Sulfate (*Crx) 2 Mg/Ml Inj IV PUSH Q4H PRN Pain Rated 7-10 Rosuvastatin Calcium 20 mg 06/27/24 09:00 06/28/24 08:02 Rosuvastatin 20 Mg Tablet BY MOUTH 20 mg DAILY SHAZIA Administration Tramadol HCl 25 mg 06/27/24 02:00 06/27/24 07:44 Tramadol Hcl (*Crx) 25 Mg Tablet PO 25 mg Q4H PRN Administration Pain Rated 4-6 Radiology Results: ITS Impressions Knee X-Ray 06/26/24 20:36 IMPRESSION: No acute fracture or dislocation. Large right knee joint effusion. Venous Doppler Study 06/27/24 12:43 IMPRESSION: 1. No deep venous thrombosis in the right lower limb. 2. Moderate-sized right knee joint effusion and moderate-sized Taylor's cyst. Labs Labs: Laboratory Results - last 24 hr 06/27/24 06/27/24 06/27/24 11:41 16:52 20:25 WBC RBC Hgb Hct MCV MCH MCHC RDW Plt Count MPV Immature Gran % (Auto) Neut % (Auto) Lymph % (Auto) [place] % (Auto) Eos % (Auto) Baso % (Auto) Lymph # (Auto) [place] # (Auto) Eos # (Auto) Baso # (Auto) Abs Immat Gran (auto) Absolute Neuts (auto) Absolute Nucleated RBC Nucleated RBC % Sodium Potassium Chloride Carbon Dioxide Anion Gap BUN Creatinine Estim Creat Clear Calc Estimated GFR Glucose POC Capillary Glucose 128 H 99 136 H Lactic Acid Calcium Magnesium Total Bilirubin AST ALT Alkaline Phosphatase Total Protein Albumin 06/28/24 06/28/24 04:14 08:17 WBC 7.1 RBC 4.31 L Hgb 12.6 L Hct 37.2 L MCV 86.3 MCH 29.2 MCHC 33.9 RDW 13.2 Plt Count 201 MPV 10.1 Immature Gran % (Auto) 0.3 Neut % (Auto) 88.9 H Lymph % (Auto) 6.8 L [place] % (Auto) 3.3 Eos % (Auto) 0.6 Baso % (Auto) 0.1 L Lymph # (Auto) 0.48 L [place] # (Auto) 0.2 Eos # (Auto) 0.0 Baso # (Auto) 0.0 Abs Immat Gran (auto) 0.02 Absolute Neuts (auto) 6.3 Absolute Nucleated RBC 0.000 Nucleated RBC % 0.0 Sodium 134 L Potassium 4.3 Chloride 103 Carbon Dioxide 23 Anion Gap 8 BUN 13 D Creatinine 0.83 Estim Creat Clear Calc 103 Estimated GFR > 60 Glucose 159 H POC Capillary Glucose 156 H Lactic Acid 1.0 Calcium 8.6 Magnesium 2.2 Total Bilirubin 0.8 AST 17 ALT 21 Alkaline Phosphatase 60 Total Protein 7.0 Albumin 3.6
--- NOTE | 2024-06-28 09:54 | W.PM.PROC2 ---
Procedure Note - Detailed Date of Procedure 06/28/24 Pre-op Diagnosis Right knee effusion, pseudogout Post-op Diagnosis Same Procedure Performed Right Knee Aspiration with injection of 50mg Kenalog Surgeon Bill Valderrama MD Anesthesia Other Indications Right Knee Pseudogout Findings Turbid aspirate Description of Procedure Right knee was sterilized with duraprep. 70 cc aspirated, injection of 50mg kenalog and lidocaine under sterile conditions. Urine Output 1,600 Condition Stable
[2024-06-28 12:00] VITALS: BP 131/70; PULSE 77; RESP 18; TEMP 37.2; O2SAT 93
[2024-06-28 12:26] LABS: Glucose Point of Care 191 mg/dl (65-105)
--- NOTE | 2024-06-28 15:15 | P.DS_ITS ---
DS: Admitting Diagnosis Discharge Date 06/28/2024 Admitting Diagnosis Right knee pain DS: Discharge Diagnosis Discharge Diagnosis (1) Septic arthritis: Code(s): M00.9 - Pyogenic arthritis, unspecified Status: Acute Plan [place] [address] and few CPPD Blood and synovial fluid culture pending Continue Rocephin and Vanc Ortho consulted Rt LE US: IMPRESSION: 1. No deep venous thrombosis in the right lower limb. 2. Moderate-sized right knee joint effusion and moderate-sized Taylor's cyst. Rt Knee Xray: No acute fracture or dislocation. Large right knee joint effusion. DVT prophylaxis on Lovenox DS: Summary Hospital Course Hospital Course: 59-year-old male presented to emergency room with acute onset right knee pain and swelling started on Thursday morning trauma associated with this knee swelling. The patient is recently postop from a prostatectomy and currently has catheter in place His is on postop oral antibiotics. In the ER, 90cc was aspirated from his Right knee. 35,000 WBC in aspirate. (+) CPPD Crystals (pseudogout). History of knee arthritis with most recent intra-articular injection performed more than 2 yrs ago. Orthopedics the performed Right Knee Aspiration with injection of 50mg Kenalog on 06/27/2024 Synovial fluid analysis shows Synovial nucleated cells 35k and neutrophils 91 and few CPPD. Patient will be started on colchicine and needs to follow-up with the PCP. Patient also will be treated with amoxicillin/clavulanate and doxycycline for possible septic arthritis. Patient started on colchicine 0.6 mg b.i.d. for 7 days and follow-up with the PCP if needs to be continued. Gram stain shows no growth but as per nursing patient received vancomycin before the knee tap. Time Spent with Patient Time attestation: Total time spent providing and/or coordinating discharge services: 45 minutes Exam Extrem: Other: Edematous right knee, warm to touch. No lesions or ulcers. Tender to moderate palpation. Limited range of motion due to pain. DS: Data Data Completed and Pending Labs on day of discharge: Labs from last 24 hours 06/28/24 06/28/24 06/28/24 12:23 11:34 08:17 WBC RBC Hgb Hct MCV MCH MCHC RDW Plt Count MPV Immature Gran % (Auto) Neut % (Auto) Lymph % (Auto) [place] % (Auto) Eos % (Auto) Baso % (Auto) Lymph # (Auto) [place] # (Auto) Eos # (Auto) Baso # (Auto) Abs Immat Gran (auto) Absolute Neuts (auto) Absolute Nucleated RBC Nucleated RBC % Sodium Potassium Chloride Carbon Dioxide Anion Gap BUN Creatinine Estim Creat Clear Calc Estimated GFR Glucose POC Capillary Glucose 191 H 156 H Lactic Acid Calcium Magnesium Total Bilirubin AST ALT Alkaline Phosphatase Total Protein Albumin Vancomycin Trough 7.0 L 06/28/24 06/27/24 06/27/24 04:14 20:25 16:52 WBC 7.1 RBC 4.31 L Hgb 12.6 L Hct 37.2 L MCV 86.3 MCH 29.2 MCHC 33.9 RDW 13.2 Plt Count 201 MPV 10.1 Immature Gran % (Auto) 0.3 Neut % (Auto) 88.9 H Lymph % (Auto) 6.8 L [place] % (Auto) 3.3 Eos % (Auto) 0.6 Baso % (Auto) 0.1 L Lymph # (Auto) 0.48 L [place] # (Auto) 0.2 Eos # (Auto) 0.0 Baso # (Auto) 0.0 Abs Immat Gran (auto) 0.02 Absolute Neuts (auto) 6.3 Absolute Nucleated RBC 0.000 Nucleated RBC % 0.0 Sodium 134 L Potassium 4.3 Chloride 103 Carbon Dioxide 23 Anion Gap 8 BUN 13 D Creatinine 0.83 Estim Creat Clear Calc 103 Estimated GFR > 60 Glucose 159 H POC Capillary Glucose 136 H 99 Lactic Acid 1.0 Calcium 8.6 Magnesium 2.2 Total Bilirubin 0.8 AST 17 ALT 21 Alkaline Phosphatase 60 Total Protein 7.0 Albumin 3.6 Vancomycin Trough Preliminary micro results at discharge 06/26/24 22:09 Anaerobic Culture - Preliminary Patella Right Aerobic Culture - Preliminary 06/27/24 01:52 Blood Culture - Preliminary Blood 06/27/24 02:00 Blood Culture - Preliminary Blood Additional Comments Additional comments: ITS Impressions Knee X-Ray 06/26/24 20:36 IMPRESSION: No acute fracture or dislocation. Large right knee joint effusion. Venous Doppler Study 06/27/24 12:43 IMPRESSION: 1. No deep venous thrombosis in the right lower limb. 2. Moderate-sized right knee joint effusion and moderate-sized Taylor's cyst. Discharge Plan Discharge Attending physician on discharge: Harjeet Sol Consulting providers: Bill Valderrama Discharging Clinician: Harjeet Sol Anticipated Discharge Date/Time: 06/28/24 15:58 Patient Disposition: Home Activity: as tolerated Diet: regular Discharge Instructions: Please complete Augmentin and doxycycline until 07/24/2024 Please discuss with your PCP if colchicine needs to be continued. Patient Instructions: Antibiotic Form, Low Purine Diet (GEN), Gout (GEN), Pain Management (DC) Patient Language: Moldovan Stand Alone Forms: General Discharge Information Follow-up/Referrals: Mikel Hart MD [Primary Care Provider] - (Patient started on colchicine 0.6 mg b.i.d. for 7 days and follow-up with the PCP /ortho if needs to be continued. Patient also treated for septic arthritis with Augmentin and doxycycline until 07/24/2024) Bill Valderrama MD [Physician] - (Patient started on colchicine 0.6 mg b.i.d. for 7 days and follow-up with the PCP /ortho if needs to be continued. Patient also treated for septic arthritis with Augmentin and doxycycline until 07/24/2024) Discharge Medications: New doxycycline hyclate 100 mg Tablet 100 mg PO Q12HR Qty: 60 0RF amoxicillin-pot clavulanate 875-125 mg tablet 1 tablet PO Q12H Qty: 60 0RF colchicine 0.6 mg tablet 0.6 mg PO BID Qty: 14 0RF Continued hydrochlorothiazide 25 mg tablet 25 mg PO DAILY Qty: 90 3RF lisinopril 30 mg tablet 30 mg PO DAILY Qty: 30 2RF (DME) OneTouch Verio test strips Strip See Rx Instructions .Route Qty: 100 3RF Rx Instructions: test qam fasting (DME) blood-glucose meter [OneTouch Verio Flex meter] [facility] [place] Instructions .Route Qty: 1 0RF Rx Instructions: test qam fasting (DME) lancing device with lancets [OneTouch Delica Plus Lanc Dev] Kit See Rx Instructions .Route Qty: 1 0RF Rx Instructions: test qam fasting (DME) lancets [OneTouch Delica Plus Lancet] 33 gauge misc See Rx Instructions .Route Qty: 100 3RF Rx Instructions: test qam fasting metformin 500 mg tablet extended release 24 hr 2,000 mg PO DAILY Rx Instructions: 1 po qd x 1 wk, then 2 po qd x 1 wk, then 3 po qd x 1 wk, then 4 po qd docusate sodium [Colace] 100 mg capsule 100 mg PO DAILY Qty: 30 0RF hyoscyamine sulfate 0.125 mg tablet 0.125 mg PO Q6H PRN (Reason: bladder spasms) Qty: 20 2RF ketorolac 10 mg tablet 10 mg PO Q6H 5 Days Qty: 20 0RF rosuvastatin 20 mg tablet See Rx Instructions .ROUTE .COMPLEX Qty: 90 2RF Dose Instruction: Take 1 tablet by mouth once daily Rx Instructions: Take 1 tablet by mouth once daily Discontinued cephalexin 500 mg capsule 500 mg PO Q8H Qty: 9 0RF Date of admission: 06/27/24 00:37 Primary Care Provider: Mikel Hart Admitting Provider: Mona Santana Attending physician on admission: Mona Santana Condition: Stable
[2024-06-28] MEDS: DOXYCYCLINE HYCLATE 100 MG TABLET PO (16:25)
[2024-06-29 18:59] LABS: Glucose Synovial Fluid 67 mg/dL; Total Protein Synovial Fluid 2.6 g/dL (1.0-3.0)
== END 2024-06-28 16:47 | disposition home or self-care (01) | DRG 550 ==
LOC: ANHED 23:44 → ANH2MED 06-27 00:56
PROVIDERS: Internal Medicine; Admitting Provider General Practice; Emergency Provider Emergency Medicine; PCP Family Medicine; Visit Provider General Practice
DX: M00.9 Pyogenic arthritis, unspecified (principal); M11.861 Other specified crystal arthropathies, right knee; M11.261 Other chondrocalcinosis, right knee; M71.21 Synovial cyst of popliteal space [Baker], right knee; M17.0 Bilateral primary osteoarthritis of knee; M51.369 Other intervertebral disc degeneration, lumbar region without mention of lumbar back pain or lower extremity pain; E66.9 Obesity, unspecified; Z98.1 Arthrodesis status; Z68.33 Body mass index [BMI] 33.0-33.9, adult; Z85.46 Personal history of malignant neoplasm of prostate
CPT/HCPCS: 20610; 36415; 73564; 80053; 80202; 82565; 82945; 82948; 83605; 83735; 84157; 85025; 85652; 86140; 87040; 87070; 87075; 87205; 89051; 89060; 93971; 96365; 96368; 99285; A9270; J0696; J1650; J3370

== ENCOUNTER 2024-07-01 11:32 | Outpatient (CLI) | payer BC, SELFPAY ==
--- NOTE | ~2024-07-01 | XR_ITS ---
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 There was retrograde administration of Omnipaque 350 mixed with saline contrast into patient's existing Morrow catheter. Fluoroscopic bertha ges of the pelvis were obtained. A post-void image was also performed. Fluoroscopy exposure time was 0.8 minutes. A total of 15 fluoroscopic images and 2 overhead radiographs were obtained. Total DAP wa s 30.536 Gycm^2. FINDINGS: There is a tiny leak measuring approximately 8 x 3 mm extending anteriorly towards the righ t at the level of the prostatic urethra. Otherwise normal contour to the bladder. Couple phleboliths in the left hemipelvis. IMPRESSION: 1. Tiny leak in the region of the right anterior prostatic urethra. Reviewed, dictated and finalized at location A.
--- OUTSIDE RECORDS SUMMARY | 2024-07-01 11:51 | XMS_ITS | Clinical Summary ---
Author Organization [facility] Address [address] 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 This disclosure is being madepursuant to the Care Everywhere program and may not contain all information available regarding this patient. 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 Gender Identity Not on file Sexual Orientation Not on file Last Filed Vital Signs Vital Sign Reading Time Taken Comments Blood Pressure 111/72 02/08/2009 4:00 PM TRAILER PARK MANAGER Pulse 99 02/08/2009 4:00 PM TRAILER PARK MANAGER Temperature 36.2 C (97.2 F) 02/08/2009 4:00 PM TRAILER PARK MANAGER Respiratory Rate 16 02/08/2009 4:00 PM TRAILER PARK MANAGER Oxygen Saturation 98% 02/08/2009 4:00 PM TRAILER PARK MANAGER Inhaled Oxygen Concentration - - Weight 106.6 kg (235 lb 0.2 oz) 009 10:32 AM TRAILER PARK MANAGER Height 182.9 cm (6' 0.01 ) 01/29/2009 1 0:32 AM TRAILER PARK MANAGER Body Mass Index 31.87 01/29/2009 10:32 AM TRAILER PARK MANAGER Plan of Treatment Health Maintenance Due Date [...] on patient's age to complete this topic Insurance [facility] SELF PAY NO INSURANCE Member Subscriber Plan / Payer (Ef fective for All Dates) Name:Dominic Hawthorne Member ID:Not on file Relation to Subscriber:Not on file Name:DOMINIC HAWTHORNE Subscriber ID:Not on file (Home) Address: [address] [place] [id number] Payer ID:Not on file Group ID:Not on file Type:Self Pay Address: [place], [place]
--- OUTSIDE RECORDS SUMMARY | 2024-07-01 11:51 | XMS_ITS | Data Portability ---
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 Name Role Phone ADOLFO PANIAGUA Primary Care [...] procedure, administere d by provider 2023 024 [email or web address] In-Office Order, Internal Use Only DO Not Attach Compendium DO Not Attach Compendium, Do Not Delete/merge, [id number] 11:05:22 injection/a spiration joint/bursa (PROC) - in office procedure, administere d by provider 2022 023 [email or web address] In-Office Order, Internal Use Only DO Not Attach Compendium DO Not Attach Compendium, Do Not Delete/merge, [id number] 3 10:53:14 injection/a spiration joint/bursa (PROC) - in office procedure, administere d by provider 2022 023 In-Office Order, Internal Use Only DO Not Attach Compendium DO Not Attach Compendium, Do Not Delete/merge, [id number] 3 12:18:02 Surgeries None recorded. Imaging XR, knee [address], [address] [place] [address], [address], 3 15:48:48 Medication Orders Kenalog 10 mg/mL suspension for injection [address] [facility], [address] [place] [address], [address], 4 11:37:03 bupivacaine HCl 0.5 % (5 mg/mL) injection solution [address] [facility], [facility] [place], [address], 4 11:37:03 Kenalog 10 mg/mL suspension for injection [address] [facility], [facility] [place], [address], 3 14:03:42 ropivacaine (PF) 5 mg/mL (0.5 %) injection solution [address], [facility] [place], [address], 3 14:03:42 Kenalog 10 mg/mL suspension for injection [address], [address] [place] [address], [address], 3 12:50:47 ropivacaine (PF) 5 mg/mL (0.5 %) injection solution 2022 023 [email or web address] [facility], [address] [facility], [place], [address], 3 12:50:47 Patient TargetsNo targets recorded. Patient InstructionsNo instructions recorded. Reason for Referral None Reported. Results Created Date Observation Date Name Description Value Unit Range Abnormal Flag Note LastModifiedBy Organization Detail LastModifiedTime 02/07/20 22 XR, knee No observ ation record ed. [id number] [facility] [address], [place], [address], 05/07/2022 03:14:00 07/25/19 23 XR, knee No observ ation record ed. s_gmg [address], [place], [address], 07/24/2022 12:57:07 Result Notes None recorded. Problems Name Problem SNOMED Code Status Onset Date Resolution Date Notes Provider Name and Address Organization Details Recorded Time Pain of bilateral knee joints 7182198831722 04 Active 2022 JOSH Aguayo, [place] [facility] [employer] [facility] 3 12:16:30 Disorder of shoulder 330960384 Active Not Available [facility] 3 03:03:06 Knee joint effusion 659471183 Active Not Available [facility] 3 03:03:06 Ankle pain 005551886 Active Not Available [facility] 3 03:03:06 Low back pain 074852246 Active Not Available [facility] 3 03:03:06 Osteoarthr itis 385823388 Active Not Available [facility] 3 03:03:06 Foot pain 81080552 Active Not Available [facility] 3 03:03:07 Osteochond ritis dissecans 78892499 Active Not Available [facility] 3 03:03:07 Bilateral osteoarthr itis of knees 5719030381092 07 Active 2022 JOSH Aguayo, [place] - [facility] [employer] [facility] 10:50:32 Problem Notes None recorded. Procedures Surgical History Date Name Laterality Status Provider Name and Address Organization Details Recorded Time Carpal tunnel surgery completed Not Available [facility] 05/07/2022 02:55:59 Imaging Results Imaging Date Name Status LastModified by Organiz ation Details LastModified Time 02/06/2022 XR, knee completed [id number] [facility] [address], [place], [address], 05/07/2022 03:14:00 07/24/2022 XR, knee completed [facility], [place], [address], 07/24/2022 12:57:07 Procedure Notes None recorded. Medical [...] Updated DateTime 07/24/2022 175.26 cm 37.1 kg/m2 217680.68 g Bibi Jones Etienne [facility] [employer] [facility] 07/24/2022 12:20:12 Date Recorded Body height Provider Name an d Address Organization Details Last Updated DateTime 02/19/2023 175.26 cm Bibi Jones Etienne [facility] [employer] [facility] 02/19/2023 10:49:55 Date Recorded Body height Provider Name an d Address Organization Details Last Updated DateTime 05/28/2023 175.26 cm JOSH Aguayo [place] [facility] 05/28/2023 11:03:22 Date Recorded Body mass index (BMI) Body height Body weight Provider Name and Address Organization Details Last Updated DateTime 07/25/2021 39 kg/m2 175.26 cm 069041.39 g Not Available [facility] 05/07/2022 03:00:20 Date Recorded Body height Provider Name an d Address Organization Details Last Updated DateTime 02/06/2022 175.26 cm Not Available [facility] 03:00:19 Social History Question Answer Notes LastModified by Organizat ion Details LastModified Time Tobacco Smoking Status Unknown If Ever Smoked Not Available [facility] 05/07/2022 02:48:56 What Is Your Level Of Alcohol Consumption? Occasional [id number] Information not available 05/07/2022 Sex: Unknown Functional Status None recorded. Mental Status None recorded. Family History Relationship Description Onset Age of this Age Resolved Age Notes LastModified by Organization Details LastModified Time Father Hypertensive disorder [id number] Not available 05/07/2022 02:56:03 Medical History Condition [...] high-dose, trivalent, PF 03/09/2014 completed Not Available [facility] 2022 03:13:16 Past Encounters Encounter ID Performer Location Encounter Start Date Encounter Closed Date Diagnosis/Indication Diagnosis SNOMED-CT Code Diagnosis ICD10 Code Diagnosis Note [id number] [facility] [address] [address] 09/13/2020 00:00:00 09/13/2020 10:48:16 [id number] [facility] [address] [address] 09/24/2020 00:00:00 09/24/2020 15:57:26 [id number] [facility] [address] [address] 02/28/2021 00:00:00 02/28/2021 10:29:29 [id number] [facility] [address] [address] 07/25/2021 00:00:00 07/25/2021 10:18:45 [id number] [facility] [address] [address] 02/06/2022 00:00:00 02/06/2022 10:34:18 [id number] ANGY Roger [facility] [address] [address] 07/24/2022 11:58:57 07/24/2022 13:10:36 Pain of bilateral knee joints 2829996943 74175 M25.561 M25.907 [id number] ANGY Roger [facility] [address] [address] 02/19/2023 10:43:24 02/19/2023 12:16:10 Bilateral osteoarthritis of knees 6779183417 75659 M17.0 [id number] ANGY Roger [facility] [address] [address] 05/28/2023 11:01:33 05/28/2023 11:24:55 Bilateral osteoarthritis of knees 1489106498 27297 M17.0 Health Concerns Section Related Observation LastModified by Organization Detai ls LastModified Time None Recorded Concern Status LastModified by Organization Details LastModified Time None Recorded Advance Directives Directive None Recorded Payers Encounter Date Sequence Insurance Name Policy Number Policy Garcia Covered Member ID Garcia Member ID Guarantor Name 07/24/2022 1 [place] [id number] Dominic Cariast [id number] Dominic Linwood 02/19/2023 1 [place] [id number] Dominic Quesadafitt [id number] Dominic Linwood 05/28/2023 1 [place] [id number] Dominic Quesadafitt [id number] Dominic Palumbo
== END 2024-07-01 11:33 | disposition home or self-care (01) ==
PROVIDERS: PCP Family Medicine; Visit Provider Urology
DX: C61 Malignant neoplasm of prostate (principal)
CPT/HCPCS: 51600; 74430; Q9967